=== PATIENT | male | born 1940 | race African-American/Black ===

== ENCOUNTER 2022-09-27 15:44 | Inpatient (IN) | payer MEDICARE, SELFPAY ==
[2022-09-27] VITALS (31 sets, daily range): BP systolic 99–122; BP diastolic 52–70; PULSE 86–129; RESP 14–28; TEMP 36.9–38.1; O2SAT 94–99; BMI 22.1
--- NOTE | ~2022-09-27 | XR_ITS ---
XR abdomen/kub 1V 09/30/2022 11:38 Indication: Pelvic pain. Possible stone. Procedure: KUB Comparison: No prior studies for comparison. Findings: Study limited due to overlying right lower extremity. Bowel gas pattern is nonobstructive. No definite renal stones are seen although the kidneys are obscured by bowel content.. Impression: 1: Unremarkable KUB. Reviewed, dictated and finalized at location A. [employer]ICAL MANAGER Impression: 1: Unremarkable KUB.
--- NOTE | ~2022-09-27 | XR_ITS ---
XR chest 1V portable 09/27/2022 17:17 Indication: Cough and shortness of breath Procedure: AP portable chest Comparison: No prior studies for comparison. Findings: Shallow inspiration. Heart size normal. There is atherosclerosis and ectasia of the aorta. No focal air space disease, pulmonary edema, pleural effusion or suspected pneumothorax. Impression: 1: No acute cardiopulmonary disease. Reviewed, dictated and finalized at location A. [employer] S[employer]TER Impression: 1: No acute cardiopulmonary disease.
[2022-09-27 16:10] LABS: Hematocrit 40.5 % (42.0-52.0); Hemoglobin 13.1 g/dL (14.0-18.0); Mean Corpuscular HGB Conc 32.3 g/dl (32-36); Mean Corpuscular Hemoglobin 27.2 pg (26-34); Mean Corpuscular Volume 84.2 fl (80-100); Mean Platelet Volume 10.9 fl (7.4-10.4); Platelet Count Result 165 k/mm3 (150-375); Red Blood Count 4.81 M/mm3 (4.6-6.20); Red Cell Distribution Width 16.7 % (11.5-14.5)
--- NOTE | 2022-09-27 16:20 | ED.FEVER ---
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 Patient is a resident at a nursing facility and was found to have a temperature of 103 Fahrenheit earlier today so EMS was called. For EMS, his temperature was 100.8F. Patient is normally A&O x1 and today was noted to be slightly more lethargic than normal. On my evaluation, the patient denies any pain. Related Data Home Medications Medication Instructions Recorded Confirmed ascorbic acid (vitamin C) 500 mg 500 mg PO BID 09/28/22 09/28/22 tablet baclofen 10 mg tablet 20 mg PO TID 09/28/22 09/28/22 bisacodyl 5 mg tablet,delayed 5 mg PO DAILY PRN Constipation 09/28/22 09/28/22 release cyanocobalamin (vitamin B-12) 1,000 mcg PO DAILY 09/28/22 09/28/22 1,000 mcg tablet docusate sodium 100 mg capsule 100 mg PO BID 09/28/22 09/28/22 (Colace) duloxetine 60 mg capsule,delayed 60 mg PO DAILY 09/28/22 09/28/22 release magnesium 250 mg tablet 250 mg PO DAILY 09/28/22 09/28/22 melatonin 3 mg tablet 3 mg PO HS PRN Insomnia 09/28/22 09/28/22 multivitamin with minerals-folic 1 tablet PO DAILY 09/28/22 09/28/22 acid 0.4 mg tablet oxycodone-acetaminophen 7.5 mg-325 1 tablet PO Q6H PRN Pain 09/28/22 09/28/22 mg tablet (Percocet) polyethylene glycol 3350 17 17 g PO DAILY 09/28/22 09/28/22 gram/dose oral powder (Miralax) potassium chloride 10 mEq 10 meq PO DAILY 09/28/22 09/28/22 capsule,extended release Allergies Allergy/AdvReac Type Severity Reaction Status Date / Time Penicillins Allergy Unknown Verified 09/27/22 16:39 Review of Systems Review of Systems: ROS unobtainable: Yes unobtainable due to mental status PMFSH Social History Social History Alcohol intake: unknown Substance use: unknown Spiritual care concerns: No Exam Narrative: GENERAL: Chronically ill-appearing gentleman lying in bed in no acute distress, appears to have chronic contractures of all 4 extremities HEAD: Normocephalic, atraumatic. EYES: PERRLA and EOMI. ENT: Nares clear, no rhinorrhea or epistaxis. Mucous membranes moist. NECK: Supple. CHEST: Clear to auscultation. No respiratory distress. HEART: Regular rate and rhythm. No murmur heard. Normal peripheral pulses. ABDOMEN: Soft, nontender, nondistended, normal active bowel sounds. EXTREMITIES: Normal range of motion. No edema. small pressure ulcer on sacrum, no drainage or surrounding redness SKIN: Warm, dry, no rash. NEURO: Chronic contractures in all extremities related to prior cervical spine injury, patient is responding intermittently appropriately, A&O x0 Course Vital Signs Vital signs: Vital Signs Temperature 100.5 F H 09/27/22 15:45 Pulse Rate 129 H 09/27/22 15:45 Respiratory Rate 28 H 09/27/22 15:45 Blood Pressure 100/52 L 09/27/22 15:45 Pulse Oximetry 95 09/27/22 15:45 Temperature 97.9 F 09/28/22 14:00 Pulse Rate 83 09/28/22 16:00 Respiratory Rate 16 09/28/22 14:00 Blood Pressure 112/73 09/28/22 14:00 Pulse Oximetry 99 09/28/22 14:00 Oxygen Delivery Room Air 09/28/22 08:00 MDM - Fever MDM Narrative Medical decision making narrative: Patient is an 82-year-old male presenting with fever. On arrival, patient is febrile and tachycardic in the 120s. Blood pressures are sitting 90-100 systolic. Fluid resuscitation is ongoing. Pt with significant leukocytosis and UTI. Electrolytes wnl. Lactic acid is normal. Pt covered with broad spectrum abx. Admitted to medicine for further management of sepsis. Lab Data 09/27/22 15:55 Labs: Lab Results 09/27/22 09/27/22 09/27/22 Range/Units 15:55 15:56 16:55 WBC 23.0 H (4.5-10.0) K/mm3 RBC 4.81 (4.6-6.
[2022-09-27] MEDS: KETOROLAC 15 MG/ML VIAL (*BKC) IV PUSH (16:39)
[2022-09-27] MEDS: SODIUM CHLORIDE 0.9% IV 1,000 ML 999 ML IV CONT (16:40)
[2022-09-27 16:50] LABS: Influenza A QL RT-PCR Negative (Negative); Influenza B QL RT-PCR Negative (Negative); SARS-CoV-2 RNA PCR Negative
[2022-09-27 17:05] LABS: Band Neutrophils Percent 7 % (0-6); Lymphocytes Absolute Manual 0.92 K/mm3 (1.1-4.5); Monocytes Absolute Manual 1.61 K/mm3 (0.1-0.90); Monocytes Percent Manual 7 % (3-9); Neutrophils Absolute Manual 20.47 K/mm3 (1.3-6.7); Neutrophils Percent Manual 82 % (46-73); Total Cells Counted 100
[2022-09-27 17:07] LABS: Platelet Estimate Adequate (Adequate); Schistocytes None Seen (NORMAL)
[2022-09-27 17:08] LABS: Anisocytosis 2+ (NORMAL)
[2022-09-27 17:17] LABS: Lactic Acid Reflex 1.4 mmol/L (0.7-2.0)
[2022-09-27 17:23] LABS: Alanine Aminotransferase 17 U/L (6-50); Alkaline Phosphatase 105 U/L (38-126); Anion Gap 8 mmol/L (8-16); Aspartate Amino Transferase 39 U/L (17-59); Bilirubin,Total 0.9 mg/dL (0.2-1.3); Blood Urea Nitrogen 26 mg/dL (9-20); Calcium 8.6 mg/dL (8.4-10.2); Carbon Dioxide 21 mmol/L (22-30); Chloride 107 mmol/L (98-107); Estimated CRCL calculation 43 ml/min; Estimated Glomerular Filt Rate > 60; Glucose 128 mg/dL (65-110); Potassium 4.4 mmol/L (3.4-5.0); Sodium 136 mmol/L (137-145)
[2022-09-27 20:15] LABS: Appearance Urine Turbid (Clear); Bilirubin Urine Negative (Negative); Blood Urine 2+ (Negative); Color Urine Yellow (Yellow); Glucose Urine UA Negative (Negative); Ketones Urine Negative (Negative); Leukocyte Esterase Ur 3+ LEU/UL (Negative); Nitrate Urine Negative (Negative); Protein Urine 3+ mg/dL (Negative); Specific Grav Ur 1.015 (1.001-1.035); Urobilinogen Urine 0.2 mg/dL (<2.0); pH Urine >=9.0 (5.0-9.0)
[2022-09-27 20:32] LABS: Bacteria Urine Trace /hpf; RBC Urine >75 /hpf (0-2); Squamous Epithelial Cell Urine Rare /hpf (Few); WBC Urine >75 /hpf
[2022-09-27 20:49] LABS: Add Urine Microscopic? YES
--- NOTE | 2022-09-27 21:27 | PM.IMHP ---
H&P: HPI History of Present Illness Date/Time: 09/27/22 21:27 Chief Complaint: altered mental status Narrative: This is an 82-year-old male with past medical history significant for quadriplegia, [facility]. Was brought to the emergency room for evaluation due to altered mental status patient also had spiked a fever EMS was called and patient was brought to the emergency room for further evaluation. In emergency room patient was found to have a urinary tract infection. Most of the history has been obtained upon reviewing medical records patient is unable to give any history his obtundent. A chest x-ray was clear. Patient is been admitted for further evaluation management and treatment. Review of Systems Review of Systems: ROS unobtainable: Yes unobtainable due to mental status ( Obtunded, lethargic) Meds Home Medications and Allergies Home Medications Medication Instructions Recorded Confirmed Type ascorbic acid (vitamin C) 500 mg 500 mg PO BID 09/28/22 09/28/22 History tablet baclofen 10 mg tablet 20 mg PO TID 09/28/22 09/28/22 History bisacodyl 5 mg tablet,delayed 5 mg PO DAILY PRN Constipation 09/28/22 09/28/22 History release cyanocobalamin (vitamin B-12) 1,000 mcg PO DAILY 09/28/22 09/28/22 History 1,000 mcg tablet docusate sodium 100 mg capsule 100 mg PO BID 09/28/22 09/28/22 History (Colace) duloxetine 60 mg capsule,delayed 60 mg PO DAILY 09/28/22 09/28/22 History release magnesium 250 mg tablet 250 mg PO DAILY 09/28/22 09/28/22 History melatonin 3 mg tablet 3 mg PO HS PRN Insomnia 09/28/22 09/28/22 History multivitamin with minerals-folic 1 tablet PO DAILY 09/28/22 09/28/22 History acid 0.4 mg tablet oxycodone-acetaminophen 7.5 mg-325 1 tablet PO Q6H PRN Pain 09/28/22 09/28/22 History mg tablet (Percocet) polyethylene glycol 3350 17 17 g PO DAILY 09/28/22 09/28/22 History gram/dose oral powder (Miralax) potassium chloride 10 mEq 10 meq PO DAILY 09/28/22 09/28/22 History capsule,extended release Allergies Allergy/AdvReac Type Severity Reaction Status Date / Time Penicillins Allergy Unknown Verified 09/27/22 16:39 Vital Signs Vital Signs - 24 hr 09/27/22 15:45 09/27/22 15:55 09/27/22 16:00 Temperature 100.5 F H Pulse Rate 129 H 116 H 111 H Respiratory Rate 28 H Blood Pressure 100/52 L Pulse Oximetry 95 96 94 09/27/22 16:01 09/27/22 16:19 09/27/22 16:50 Temperature Pulse Rate 101 H 101 H 104 H Respiratory Rate Blood Pressure 107/69 Pulse Oximetry 95 96 09/27/22 17:00 09/27/22 17:01 Temperature Pulse Rate 101 H 102 H Respiratory Rate Blood Pressure 101/55 L Pulse Oximetry Exam Const: General: comfortable, no acute distress, well developed, ill appearing, lethargic, patient obtunded and thin Nutritional Appearance: average body habitus Orientation/consciousness: oriented to person, patient obtunded and lethargic HENMT: Head: normal to inspection, normocephalic and atraumatic Ears: hearing grossly normal bilaterally Face/Nose/Sinus: normal facial exam Face and sinus: normal facial exam Eyes: General: appearance normal, both eyes and all related structures Pupils: Equal, round and reactive pupils present EOM: EOMs intact bilaterally Neck: Neck: full ROM, no lymphadenopathy and no JVD Thyroid: thyroid normal Lymphatic: no lymphadenopathy noted Resp: Effort & Inspection: normal respiratory effort and able to speak in complete sentences Auscultation: clear to auscultation bilaterally Cardio: Jugular venous distension: no JVD Rate: regular rate Rhythm: regular rhythm Heart sounds: S1 normal heart sound present and S2 normal heart sound present GI: Inspection: normal to inspection GI Palp: Yes Soft to palpation and Yes No hepatosplenomegaly present : General: Yes deferred Skin: Rashes: no rashes Wounds: no wounds Neuro: General: oriented to person and CN's II-XI intact bilateral
[2022-09-28] VITALS (11 sets, daily range): BP systolic 106–129; BP diastolic 62–73; PULSE 61–103; RESP 14–18; TEMP 36.6–38.1; O2SAT 94–99; BMI 22.1
[2022-09-28] MEDS: SODIUM CHLORIDE 0.9% IV 1,000 ML 125 ML IV CONT (00:14)
--- NOTE | 2022-09-28 01:01 | ADMGEN ---
This patient, Alyson Mares, was admitted to Medical Room 340-01. Patient/family oriented to hospital policies and general routines including ID bracelet, bed and alarms, visiting hours, pain management, procedures, bathroom and other care routines, personal items, smoking policy, room service/diet, and visiting hours. Information on how to activate the Rapid Response Team has been discussed. Patient/Family are encouraged to report perceived risks to care and to ask questions if they do not understand what they are told or what they should do.
[2022-09-28] MEDS: ACETAMINOPHEN 650 MG SUPPOSITORY RECTAL (01:12)
[2022-09-28] MEDS: AZTREONAM 1 GM in DEXTROSE 5% IN WATER 50 ML 100 ML IVPB ×3 (03:13→18:00)
[2022-09-28] MEDS: oxyCODONE HCL (*CRX) 2.5 MG TAB IR PO (03:46)
[2022-09-28] MEDS: oxyCODONE/ACETAMINOPHEN (*CRX) 5-325 MG TABLET 1 TABLET PO (03:46)
[2022-09-28] MEDS: ASCORBIC ACID 500 MG TABLET PO ×2 (08:14→16:52)
[2022-09-28] MEDS: MAGNESIUM OXIDE 200 MG TABLET PO (08:14)
[2022-09-28] MEDS: THERAPEUTIC MULTIVITAMINS/MINERALS TAB (*BKC) 1 TABLET PO (08:14)
[2022-09-28] MEDS: CYANOCOBALAMIN 1,000 MCG TABLET 1000 MCG PO (08:15)
[2022-09-28] MEDS: DULoxetine HCL 60 MG CAPSULE.DR PO (08:15)
[2022-09-28] MEDS: DOCUSATE SODIUM 100 MG CAPSULE PO ×2 (08:15→20:16)
[2022-09-28] MEDS: BACLOFEN 10 MG TABLET 20 MG PO ×3 (08:16→16:52)
[2022-09-28] MEDS: polyethylene glycoL 3350 17 GM POWD.PACK PO (08:17)
[2022-09-28 08:48] LABS: Estimated CRCL calculation 57 ml/min; Estimated Glomerular Filt Rate > 60
[2022-09-28] MEDS: SODIUM CHLORIDE 0.9% IV 1,000 ML 75 ML IV CONT (12:06)
--- NOTE | 2022-09-28 16:00 | PM.IMPN ---
Progress Note: A&P Assessment and Plan (1) Urinary tract infection: Code(s): N39.0 - Urinary tract infection, site not specified Status: Acute Assessment and Plan: Continue IV aztreonam and vancomycin Urine culture pending Blood culture preliminary report Gram-negative bacilli in anaerobic bottle deescalate antibiotics as needed (2) Quadriplegia: Code(s): G82.50 - Quadriplegia, unspecified Status: Acute Assessment and Plan: round the clock turning schedule fall precautions Plan Continue goals of care discussion Subjective Date/time seen: 09/28/22 16:00 Patient states he has doing okay. He also stated to me that he does not want to be full code in that he just wants to end the suffering by his wants him to live and so he will follow her wishes Review of Systems Review of Systems: All systems reviewed & are unremarkable except as noted in HPI and below Exam Const: General: ill appearing Nutritional Appearance: average body habitus Orientation/consciousness: oriented to person, patient obtunded and lethargic HENMT: Head: normal to inspection, normocephalic and atraumatic Ears: hearing grossly normal bilaterally Face/Nose/Sinus: normal facial exam Face and sinus: normal facial exam Eyes: General: appearance normal, both eyes and all related structures Pupils: Equal, round and reactive pupils present EOM: EOMs intact bilaterally Neck: Neck: no JVD Thyroid: thyroid normal Lymphatic: no lymphadenopathy noted Resp: Effort & Inspection: normal respiratory effort and able to speak in complete sentences Auscultation: clear to auscultation bilaterally Cardio: Jugular venous distension: no JVD Rate: regular rate Rhythm: regular rhythm Heart sounds: S1 normal heart sound present and S2 normal heart sound present GI: Inspection: normal to inspection GI Palp: Yes Soft to palpation and Yes No hepatosplenomegaly present : General: Yes deferred Skin: Rashes: no rashes Wounds: no wounds Neuro: General: oriented to person and CN's II-XI intact bilaterally Cranial nerves: Yes Equal, round and reactive pupils present and Yes Bilaterally intact EOM present Cognition (Neuro): normal cognition Speech: normal speech Gait exam (Neuro): Other gait observations present ( quadriplegic) Motor exam (neuro): Other motor observations present ( quadriplegic) Other: contracture spasticity of bilateral lower extremity Extrem: General: normal exam except as noted, no joint enlargement and no pedal edema Objective Data Vital Signs Vital Signs: Vital Signs - 24 hr 09/27/22 16:01 09/27/22 16:19 09/27/22 16:50 Temperature Pulse Rate 101 H 101 H 104 H Respiratory Rate Blood Pressure 107/69 Pulse Oximetry 95 96 Oxygen Delivery 09/27/22 17:00 09/27/22 17:01 09/27/22 17:02 Temperature Pulse Rate 101 H 102 H 106 H Respiratory Rate Blood Pressure 101/55 L Pulse Oximetry Oxygen Delivery 09/27/22 17:15 09/27/22 17:16 09/27/22 17:43 Temperature Pulse Rate 106 H 96 100 Respiratory Rate Blood Pressure 104/60 Pulse Oximetry 98 97 Oxygen Delivery 09/27/22 17:45 09/27/22 18:00 09/27/22 18:15 Temperature Pulse Rate 102 H 106 H 103 H Respiratory Rate Blood Pressure Pulse Oximetry 97 Oxygen Delivery 09/27/22 18:32 09/27/22 18:50 09/27/22 19:13 Temperature Pulse Rate 93 93 99 Respiratory Rate Blood Pressure Pulse Oximetry 96 95 98 Oxygen Delivery 09/27/22 19:15 09/27/22 19:32 09/27/22 19:34 Temperature Pulse Rate 95 86 89 Respiratory Rate Blood Pressure 102/59 L Pulse Oximetry 98 96 97 Oxygen Delivery 09/27/22 19:49 09/27/22 20:00 09/27/22 20:01 Temperature Pulse Rate 90 93 94 Respiratory Rate Blood Pressure 99/70 L Pulse Oximetry 97 94 95 Oxygen Delivery 09/27/22 20:20 09/27/22 20:30 09/27/22 20:31 Temperature Pulse Rate 92 88 93 Respiratory Ra
[2022-09-29] VITALS (9 sets, daily range): BP systolic 122–130; BP diastolic 65–79; PULSE 61–95; RESP 18–20; TEMP 36.7–36.8; O2SAT 97–100
[2022-09-29] MEDS: SODIUM CHLORIDE 0.9% IV 1,000 ML 75 ML IV CONT (02:30)
[2022-09-29] MEDS: AZTREONAM 1 GM in DEXTROSE 5% IN WATER 50 ML 100 ML IVPB ×3 (02:31→20:01)
[2022-09-29] MEDS: DOCUSATE SODIUM 100 MG CAPSULE PO ×2 (08:08→20:33)
[2022-09-29] MEDS: polyethylene glycoL 3350 17 GM POWD.PACK PO (08:08)
[2022-09-29] MEDS: ASCORBIC ACID 500 MG TABLET PO ×2 (08:08→17:31)
[2022-09-29] MEDS: THERAPEUTIC MULTIVITAMINS/MINERALS TAB (*BKC) 1 TABLET PO (08:08)
[2022-09-29] MEDS: CYANOCOBALAMIN 1,000 MCG TABLET 1000 MCG PO (08:08)
[2022-09-29] MEDS: DULoxetine HCL 60 MG CAPSULE.DR PO (08:08)
[2022-09-29] MEDS: BACLOFEN 10 MG TABLET 20 MG PO ×3 (08:08→17:31)
[2022-09-29] MEDS: MAGNESIUM OXIDE 200 MG TABLET PO (08:08)
--- NOTE | 2022-09-29 09:59 | PM.IMPN ---
Progress Note: A&P Assessment and Plan (1) Urinary tract infection: Code(s): N39.0 - Urinary tract infection, site not specified Status: Acute Assessment and Plan: Continue IV aztreonam and vancomycin Urine culture pending Blood culture preliminary report Gram-negative bacilli in anaerobic bottle deescalate antibiotics as needed (2) Quadriplegia: Code(s): G82.50 - Quadriplegia, unspecified Status: Acute Assessment and Plan: round the clock turning schedule fall precautions Plan Continue goals of care discussion Subjective Date/time seen: 09/29/22 09:59 Back to baseline mental status Review of Systems Review of Systems: All systems reviewed & are unremarkable except as noted in HPI and below Exam Const: General: ill appearing Nutritional Appearance: average body habitus Orientation/consciousness: oriented to person, patient obtunded and lethargic HENMT: Head: normal to inspection, normocephalic and atraumatic Ears: hearing grossly normal bilaterally Face/Nose/Sinus: normal facial exam Face and sinus: normal facial exam Eyes: General: appearance normal, both eyes and all related structures Pupils: Equal, round and reactive pupils present EOM: EOMs intact bilaterally Neck: Neck: no JVD Thyroid: thyroid normal Lymphatic: no lymphadenopathy noted Resp: Effort & Inspection: normal respiratory effort and able to speak in complete sentences Auscultation: clear to auscultation bilaterally Cardio: Jugular venous distension: no JVD Rate: regular rate Rhythm: regular rhythm Heart sounds: S1 normal heart sound present and S2 normal heart sound present GI: Inspection: normal to inspection GI Palp: Yes Soft to palpation and Yes No hepatosplenomegaly present : General: Yes deferred Skin: Rashes: no rashes Wounds: no wounds Neuro: General: oriented to person and CN's II-XI intact bilaterally Cranial nerves: Yes Equal, round and reactive pupils present and Yes Bilaterally intact EOM present Cognition (Neuro): normal cognition Speech: normal speech Gait exam (Neuro): Other gait observations present ( quadriplegic) Motor exam (neuro): Other motor observations present ( quadriplegic) Other: contracture spasticity of bilateral lower extremity Extrem: General: normal exam except as noted, no joint enlargement and no pedal edema Objective Data Vital Signs Vital Signs: Vital Signs - 24 hr 09/28/22 12:00 09/28/22 14:00 09/28/22 16:00 Temperature 97.9 F Pulse Rate 94 80 83 Respiratory Rate 16 Blood Pressure 112/73 Pulse Oximetry 99 Oxygen Delivery 09/28/22 20:00 09/28/22 20:00 09/28/22 22:00 Temperature 98.9 F Pulse Rate 92 61 Respiratory Rate 18 Blood Pressure 129/67 Pulse Oximetry 94 Oxygen Delivery Room Air 09/29/22 00:00 09/29/22 04:00 09/29/22 05:18 Temperature 98.1 F Pulse Rate 93 87 61 Respiratory Rate 18 Blood Pressure 130/65 Pulse Oximetry 99 Oxygen Delivery Intake/Output Intake/Output: Intake & Output 09/26/22 09/27/22 09/28/22 09/29/22 23:59 23:59 23:59 23:59 Intake Total 1300 / 1300 3780 / 3780 1200 / 1200 Balance 1300 / 1300 3780 / 3780 1200 / 1200 Meds/Results Medications: Active Medications Generic Name Dose Route Start Last Admin Trade Name Freq PRN Reason Stop Dose Admin Ascorbic Acid 500 mg 09/28/22 09:00 09/29/22 08:08 Ascorbic Acid 500 Mg Tablet PO 500 mg BID MOON Administration Baclofen 20 mg 09/28/22 09:00 09/29/22 08:08 Baclofen 10 Mg Tablet PO 20 mg TID MOON Administration Bisacodyl 5 mg 09/28/22 01:56 Bisacodyl 5 Mg Tablet Ec PO DAILY PRN Constipation Cyanocobalamin 1,000 mcg 09/28/22 09:00 09/29/22 08:08 Cyanocobalamin 1,000 Mcg Tablet PO 1,000 mcg DAILY MOON Administration Docusate Sodium 100 mg 09/28/22 09:00 09/29/22 08:08 Docusate Sodium 100 Mg Capsule PO 100 mg Q12HR MOON Administration Duloxeti
[2022-09-29] MEDS: MELATONIN 3 MG TABLET PO (20:33)
[2022-09-29] MEDS: oxyCODONE/ACETAMINOPHEN (*CRX) 5-325 MG TABLET 1 TABLET PO (21:12)
[2022-09-29] MEDS: oxyCODONE HCL (*CRX) 2.5 MG TAB IR PO (21:12)
[2022-09-30] VITALS (10 sets, daily range): BP systolic 96–126; BP diastolic 46–71; PULSE 72–100; RESP 16–20; TEMP 36.6; O2SAT 98–99
[2022-09-30] MEDS: AZTREONAM 1 GM in DEXTROSE 5% IN WATER 50 ML 100 ML IVPB ×3 (02:39→20:51)
[2022-09-30] MEDS: ASCORBIC ACID 500 MG TABLET PO ×2 (08:16→17:55)
[2022-09-30] MEDS: DULoxetine HCL 60 MG CAPSULE.DR PO (08:16)
[2022-09-30] MEDS: MAGNESIUM OXIDE 200 MG TABLET PO (08:16)
[2022-09-30] MEDS: THERAPEUTIC MULTIVITAMINS/MINERALS TAB (*BKC) 1 TABLET PO (08:17)
[2022-09-30] MEDS: CYANOCOBALAMIN 1,000 MCG TABLET 1000 MCG PO (08:17)
[2022-09-30] MEDS: BACLOFEN 10 MG TABLET 20 MG PO ×3 (08:17→17:58)
[2022-09-30] MEDS: DOCUSATE SODIUM 100 MG CAPSULE PO ×2 (08:17→20:51)
[2022-09-30 14:53] LABS: Hematocrit 40.4 % (42.0-52.0); Hemoglobin 13.4 g/dL (14.0-18.0); Mean Corpuscular HGB Conc 33.2 g/dl (32-36); Mean Corpuscular Hemoglobin 27.3 pg (26-34); Mean Corpuscular Volume 82.3 fl (80-100); Mean Platelet Volume 11.4 fl (7.4-10.4); Platelet Count Result 185 k/mm3 (150-375); Red Blood Count 4.91 M/mm3 (4.6-6.20); Red Cell Distribution Width 16.3 % (11.5-14.5); White Blood Count 9.6 K/mm3 (4.5-10.0)
[2022-09-30] MEDS: oxyCODONE HCL (*CRX) 2.5 MG TAB IR PO (16:02)
[2022-09-30] MEDS: oxyCODONE/ACETAMINOPHEN (*CRX) 5-325 MG TABLET 1 TABLET PO (16:03)
--- NOTE | 2022-09-30 16:31 | PM.IMPN ---
Progress Note: A&P Assessment and Plan (1) Urinary tract infection: Code(s): N39.0 - Urinary tract infection, site not specified Status: Acute Assessment and Plan: Continue IV aztreonam and vancomycin Urine culture pending Blood culture preliminary report Gram-negative bacilli in anaerobic bottle deescalate antibiotics as needed 09/30/2022 interval history: patient has a quadriplegia patient is incontinent of urine and stool and has diapers presented with a acute mental status change, fever and is found to have Blood culture positive with Proteus mirabilis and being treated with Aztreonam, patient's white counts are trending down to 9.6 upon arrival was 23.0, urine culture is negative for any bacterial growth. however patient continued to complain of dysuria and pelvic pain to further evaluate patient had a KUB, showed stool but no kidney stone, will continue present management and monitor (2) Quadriplegia: Code(s): G82.50 - Quadriplegia, unspecified Status: Acute Assessment and Plan: round the clock turning schedule fall precautions Plan Continue goals of care discussion Subjective Date/time seen: 09/30/22 16:31 Narrative: ?This is an 82-year-old male with past medical history significant for quadriplegia, [facility] Was brought to the emergency room for evaluation due to altered mental status patient also had spiked a fever EMS was called and patient was brought to the emergency room for further evaluation.? In emergency room patient was found to have a urinary tract infection.? Most of the history has been obtained upon reviewing medical records patient is unable to give any history his obtundent.? A chest x-ray was clear.? Patient is been admitted for further evaluation management and treatment. 09/30/2022 interval history: patient has a quadriplegia patient is incontinent of urine and stool and has diapers presented with a acute mental status change, fever and is found to have Blood culture positive with Proteus mirabilis and being treated with Aztreonam, patient's white counts are trending down to 9.6 upon arrival was 23.0, urine culture is negative for any bacterial growth. however patient continued to complain of dysuria and pelvic pain to further evaluate patient had a KUB, showed stool but no kidney stone, will continue present management and monitor Review of Systems Review of Systems: All systems reviewed & are unremarkable except as noted in HPI and below Exam Narrative: Patient is comfortable, NAD HEENT: eyes are clear and none icteric LUNGS:CTA HEART: RR S1S2 ABD: BS+, Soft and nontender Lower extremities: no edema SKIN: nonjaundiced Neuro: grossly intact. Objective Data Vital Signs Vital Signs: Vital Signs - 24 hr 09/29/22 19:18 09/29/22 20:00 09/30/22 00:00 Temperature 98.1 F Pulse Rate 83 89 75 Respiratory Rate 20 Blood Pressure 122/75 Pulse Oximetry 97 Oxygen Delivery 09/30/22 04:37 09/30/22 04:00 09/30/22 08:30 Temperature 97.8 F Pulse Rate 77 100 Respiratory Rate 20 Blood Pressure 126/71 Pulse Oximetry 98 98 Oxygen Delivery Room Air 09/30/22 08:00 09/30/22 12:00 09/30/22 14:00 Temperature 97.9 F Pulse Rate 72 77 100 Respiratory Rate 16 Blood Pressure 96/46 L Pulse Oximetry 98 Oxygen Delivery Intake/Output Intake/Output: Intake & Output 09/27/22 09/28/22 09/29/22 09/30/22 23:59 23:59 23:59 23:59 Intake Total 1300 3780 2260 530 Balance 1300 3780 2260 530 Meds/Results Medications: Active Medications Generic Name Dose Route Start Last Admin Trade Name Freq PRN Reason Stop Dose Admin Ascorbic Acid 500 mg 09/28/22 09:00 09/30/22 08:16 Ascorbic Acid 500 Mg Tablet PO 500 mg BID MOON Administration Baclofen 20 mg 09/28/22 09:00 09/30/22 13:44 Baclofen 10 Mg Tablet PO 20 mg TID MOON Administration Bisacodyl 5 mg 09/28/22
[2022-10-01] VITALS (9 sets, daily range): BP systolic 90–124; BP diastolic 55–63; PULSE 57–92; RESP 16–20; TEMP 36.8–37.1; O2SAT 100
[2022-10-01] MEDS: AZTREONAM 1 GM in DEXTROSE 5% IN WATER 50 ML 100 ML IVPB ×3 (03:30→19:54)
[2022-10-01] MEDS: oxyCODONE HCL (*CRX) 2.5 MG TAB IR PO (04:40)
[2022-10-01] MEDS: oxyCODONE/ACETAMINOPHEN (*CRX) 5-325 MG TABLET 1 TABLET PO (04:41)
[2022-10-01] MEDS: BISACODYL 5 MG TABLET EC PO (04:42)
[2022-10-01 06:39] LABS: Hematocrit 36.5 % (42.0-52.0); Hemoglobin 11.8 g/dL (14.0-18.0); Mean Corpuscular HGB Conc 32.3 g/dl (32-36); Mean Corpuscular Hemoglobin 26.6 pg (26-34); Mean Corpuscular Volume 82.4 fl (80-100); Mean Platelet Volume 11.5 fl (7.4-10.4); Platelet Count Result 177 k/mm3 (150-375); Red Blood Count 4.43 M/mm3 (4.6-6.20); Red Cell Distribution Width 16.1 % (11.5-14.5); White Blood Count 9.9 K/mm3 (4.5-10.0)
[2022-10-01 06:49] LABS: Anion Gap 7 mmol/L (8-16); Blood Urea Nitrogen 24 mg/dL (9-20); Calcium 8.4 mg/dL (8.4-10.2); Carbon Dioxide 23 mmol/L (22-30); Chloride 103 mmol/L (98-107); Estimated CRCL calculation 87 ml/min; Estimated Glomerular Filt Rate > 60; Glucose 104 mg/dL (65-110); Potassium 3.6 mmol/L (3.4-5.0); Sodium 133 mmol/L (137-145)
[2022-10-01] MEDS: ASCORBIC ACID 500 MG TABLET PO ×2 (09:03→17:23)
[2022-10-01] MEDS: MAGNESIUM OXIDE 200 MG TABLET PO (09:03)
[2022-10-01] MEDS: CYANOCOBALAMIN 1,000 MCG TABLET 1000 MCG PO (09:03)
[2022-10-01] MEDS: DULoxetine HCL 60 MG CAPSULE.DR PO (09:03)
[2022-10-01] MEDS: DOCUSATE SODIUM 100 MG CAPSULE PO (09:07)
[2022-10-01] MEDS: BACLOFEN 10 MG TABLET 20 MG PO ×3 (09:08→17:23)
[2022-10-01] MEDS: THERAPEUTIC MULTIVITAMINS/MINERALS TAB (*BKC) 1 TABLET PO (09:08)
--- NOTE | 2022-10-01 14:42 | PM.IMPN ---
Progress Note: A&P Assessment and Plan (1) Urinary tract infection: Code(s): N39.0 - Urinary tract infection, site not specified Status: Acute Assessment and Plan: Continue IV aztreonam and vancomycin Urine culture pending Blood culture preliminary report Gram-negative bacilli in anaerobic bottle deescalate antibiotics as needed 10/01/2022 interval history: patient has a quadriplegia patient is incontinent of urine and stool and has diapers presented with a acute mental status change, fever and is found to have Blood culture positive with Proteus mirabilis and being treated with Aztreonam, patient's white counts are trending down to 9.9 upon arrival was 23.0, urine culture is negative for any bacterial growth. however patient continued to complain of dysuria and pelvic pain to further evaluate patient had a KUB, showed stool but no kidney stone, will continue present management and monitor, will discuss with ID pharmacy to and further recommendation to follow. (2) Quadriplegia: Code(s): G82.50 - Quadriplegia, unspecified Status: Acute Assessment and Plan: round the clock turning schedule fall precautions Plan Continue goals of care discussion Subjective Date/time seen: 10/01/22 14:42 10/01/2022 interval history: patient has a quadriplegia patient is incontinent of urine and stool and has diapers presented with a acute mental status change, fever and is found to have Blood culture positive with Proteus mirabilis and being treated with Aztreonam, patient's white counts are trending down to 9.9 upon arrival was 23.0, urine culture is negative for any bacterial growth. however patient continued to complain of dysuria and pelvic pain to further evaluate patient had a KUB, showed stool but no kidney stone, will continue present management and monitor, will discuss with ID pharmacy to and further recommendation to follow. Review of Systems Review of Systems: All systems reviewed & are unremarkable except as noted in HPI and below Exam Narrative: Patient is comfortable, NAD HEENT: eyes are clear and none icteric LUNGS:CTA HEART: RR S1S2 ABD: BS+, Soft and nontender Lower extremities: no edema SKIN: nonjaundiced Neuro: grossly intact. Objective Data Vital Signs Vital Signs: Vital Signs - 24 hr 09/30/22 16:00 09/30/22 19:27 09/30/22 20:00 Temperature 97.8 F Pulse Rate 96 95 98 Respiratory Rate 20 Blood Pressure 111/62 Pulse Oximetry 99 10/01/22 00:00 10/01/22 04:00 10/01/22 06:00 Temperature 98.8 F Pulse Rate 82 79 57 L Respiratory Rate 20 Blood Pressure 124/63 Pulse Oximetry 100 Intake/Output Intake/Output: Intake & Output 09/28/22 09/29/22 09/30/22 10/01/22 23:59 23:59 23:59 23:59 Intake Total 3780 2260 870 410 Balance 3780 2260 870 410 Meds/Results Medications: Active Medications Generic Name Dose Route Start Last Admin Trade Name Freq PRN Reason Stop Dose Admin Ascorbic Acid 500 mg 09/28/22 09:00 10/01/22 09:03 Ascorbic Acid 500 Mg Tablet PO 500 mg BID MOON Administration Baclofen 20 mg 09/28/22 09:00 10/01/22 12:50 Baclofen 10 Mg Tablet PO 20 mg TID MOON Administration Bisacodyl 5 mg 09/28/22 01:56 10/01/22 04:42 Bisacodyl 5 Mg Tablet Ec PO 5 mg DAILY PRN Administration Constipation Cyanocobalamin 1,000 mcg 09/28/22 09:00 10/01/22 09:03 Cyanocobalamin 1,000 Mcg Tablet PO 1,000 mcg DAILY MOON Administration Docusate Sodium 100 mg 09/28/22 09:00 10/01/22 09:07 Docusate Sodium 100 Mg Capsule PO 100 mg Q12HR MOON Administration Duloxetine HCl 60 mg 09/28/22 09:00 10/01/22 09:03 Duloxetine Hcl 60 Mg Capsule.Dr PO 60 mg DAILY MOON Administration Aztreonam 1 gm/ Dextrose 50 mls @ 100 mls/hr 09/28/22 03:00 10/01/22 11:30 IVPB 100 mls/hr Q8H MOON Administration Magnesium Oxide 200 mg 09/28/22 09:00 10/01/22 09:03 Magnesium Oxide 200 Mg Tab
[2022-10-02] VITALS (10 sets, daily range): BP systolic 90–110; BP diastolic 56–71; PULSE 64–86; RESP 16–18; TEMP 36.2–36.7; O2SAT 98–100
[2022-10-02] MEDS: AZTREONAM 1 GM in DEXTROSE 5% IN WATER 50 ML 100 ML IVPB ×3 (02:38→19:27)
[2022-10-02 05:42] LABS: Hemoglobin 12.2 g/dL (14.0-18.0); Mean Corpuscular HGB Conc 32.1 g/dl (32-36); Mean Corpuscular Hemoglobin 27.1 pg (26-34); Mean Corpuscular Volume 84.4 fl (80-100); Mean Platelet Volume 11.3 fl (7.4-10.4); Platelet Count Result 218 k/mm3 (150-375); Red Cell Distribution Width 16.3 % (11.5-14.5); White Blood Count 11.4 K/mm3 (4.5-10.0)
[2022-10-02 05:54] LABS: Anion Gap 6 mmol/L (8-16); Blood Urea Nitrogen 28 mg/dL (9-20); Calcium 8.6 mg/dL (8.4-10.2); Carbon Dioxide 27 mmol/L (22-30); Chloride 102 mmol/L (98-107); Estimated CRCL calculation 74 ml/min; Estimated Glomerular Filt Rate > 60; Glucose 100 mg/dL (65-110); Potassium 3.5 mmol/L (3.4-5.0); Sodium 135 mmol/L (137-145)
[2022-10-02] MEDS: CYANOCOBALAMIN 1,000 MCG TABLET 1000 MCG PO (09:44)
[2022-10-02] MEDS: THERAPEUTIC MULTIVITAMINS/MINERALS TAB (*BKC) 1 TABLET PO (09:44)
[2022-10-02] MEDS: ASCORBIC ACID 500 MG TABLET PO ×2 (09:44→17:01)
[2022-10-02] MEDS: DULoxetine HCL 60 MG CAPSULE.DR PO (09:44)
[2022-10-02] MEDS: MAGNESIUM OXIDE 200 MG TABLET PO (09:45)
[2022-10-02] MEDS: DOCUSATE SODIUM 100 MG CAPSULE PO (09:45)
[2022-10-02] MEDS: BACLOFEN 10 MG TABLET 20 MG PO ×3 (09:45→17:01)
[2022-10-02] MEDS: oxyCODONE HCL (*CRX) 2.5 MG TAB IR PO (12:35)
[2022-10-02] MEDS: oxyCODONE/ACETAMINOPHEN (*CRX) 5-325 MG TABLET 1 TABLET PO (12:37)
--- NOTE | 2022-10-02 14:55 | PM.IMPN ---
Progress Note: A&P Assessment and Plan (1) Urinary tract infection: Code(s): N39.0 - Urinary tract infection, site not specified Status: Acute Assessment and Plan: Continue IV aztreonam and vancomycin Urine culture pending Blood culture preliminary report Gram-negative bacilli in anaerobic bottle deescalate antibiotics as needed 10/02/2022 interval history: patient has a quadriplegia patient is incontinent of urine and stool and has diapers presented with a acute mental status change, fever and is found to have Blood culture positive with Proteus mirabilis and being treated with Aztreonam, patient's white counts are trending down to 11.4 upon arrival was 23.0, urine culture is negative for any bacterial growth. however patient continued to complain of dysuria and pelvic pain to further evaluate patient had a KUB, showed stool but no kidney stone, will continue present management and monitor, will discuss with ID pharmacy to and further recommendation to follow. (2) Quadriplegia: Code(s): G82.50 - Quadriplegia, unspecified Status: Acute Assessment and Plan: round the clock turning schedule fall precautions Plan Continue goals of care discussion Subjective Date/time seen: 10/02/22 14:55 10/02/2022 interval history: patient has a quadriplegia patient is incontinent of urine and stool and has diapers presented with a acute mental status change, fever and is found to have Blood culture positive with Proteus mirabilis and being treated with Aztreonam, patient's white counts are trending down to 11.4 upon arrival was 23.0, urine culture is negative for any bacterial growth. however patient continued to complain of dysuria and pelvic pain to further evaluate patient had a KUB, showed stool but no kidney stone, will continue present management and monitor, will discuss with ID pharmacy to and further recommendation to follow. Review of Systems Review of Systems: All systems reviewed & are unremarkable except as noted in HPI and below Exam Narrative: Patient is comfortable, NAD HEENT: eyes are clear and none icteric LUNGS:CTA HEART: RR S1S2 ABD: BS+, Soft and nontender Lower extremities: no edema SKIN: nonjaundiced Neuro: grossly intact. Objective Data Vital Signs Vital Signs: Vital Signs - 24 hr 10/01/22 16:42 10/01/22 16:00 10/01/22 20:00 Temperature 98.2 F Pulse Rate 88 92 85 Respiratory Rate 16 Blood Pressure 93/55 L Pulse Oximetry 100 Oxygen Delivery 10/01/22 20:00 10/01/22 21:50 10/02/22 00:00 Temperature 98.2 F Pulse Rate 86 82 Respiratory Rate 18 Blood Pressure 90/56 L Pulse Oximetry 100 Oxygen Delivery Room Air 10/02/22 04:00 10/02/22 06:00 10/02/22 09:45 Temperature 97.9 F Pulse Rate 82 86 86 Respiratory Rate 18 18 Blood Pressure 90/56 L Pulse Oximetry 100 100 Oxygen Delivery Room Air 10/02/22 14:00 Temperature 97.1 F L Pulse Rate 76 Respiratory Rate 18 Blood Pressure 110/71 Pulse Oximetry 98 Oxygen Delivery Intake/Output Intake/Output: Intake & Output 09/29/22 09/30/22 10/01/22 10/02/22 23:59 23:59 23:59 23:59 Intake Total 2260 870 1230 820 Output Total 4 Balance 2260 870 1230 816 Meds/Results Medications: Active Medications Generic Name Dose Route Start Last Admin Trade Name Freq PRN Reason Stop Dose Admin Ascorbic Acid 500 mg 09/28/22 09:00 10/02/22 09:44 Ascorbic Acid 500 Mg Tablet PO 500 mg BID MOON Administration Baclofen 20 mg 09/28/22 09:00 10/02/22 12:26 Baclofen 10 Mg Tablet PO 20 mg TID MOON Administration Bisacodyl 5 mg 09/28/22 01:56 10/01/22 04:42 Bisacodyl 5 Mg Tablet Ec PO 5 mg DAILY PRN Administration Constipation Cyanocobalamin 1,000 mcg 09/28/22 09:00 10/02/22 09:44 Cyanocobalamin 1,000 Mcg Tablet PO 1,000 mcg DAILY MOON Administration Docusate Sodium 100 mg 09/28/22 09:00 10/02/22 09:45 Docusate Sodium
--- NOTE | 2022-10-02 15:31 | P.PNIM_ITS ---
Progress Note: A&P Assessment and Plan (1) Urinary tract infection: Code(s): N39.0 - Urinary tract infection, site not specified Status: Acute Assessment and Plan: Continue IV aztreonam and vancomycin Urine culture pending Blood culture preliminary report Gram-negative bacilli in anaerobic bottle deescalate antibiotics as needed 10/02/2022 interval history: patient has a quadriplegia patient is incontinent of urine and stool and has diapers presented with a acute mental status change, fever and is found to have Blood culture positive with Proteus mirabilis and being treated with Aztreonam, patient's white counts are trending down to 11.4 upon arrival was 23.0, urine culture is negative for any bacterial growth. however patient continued to complain of dysuria and pelvic pain to further evaluate patient had a KUB, showed stool but no kidney stone, will continue present management and monitor, will discuss with ID pharmacy to and further recommendation to follow. (2) Quadriplegia: Code(s): G82.50 - Quadriplegia, unspecified Status: Acute Assessment and Plan: round the clock turning schedule fall precautions Plan Continue goals of care discussion Subjective Date/time seen: 10/02/22 15:31 10/02/2022 interval history: patient has a quadriplegia patient is incontinent of urine and stool and has diapers presented with a acute mental status change, fever and is found to have Blood culture positive with Proteus mirabilis and being treated with Aztreonam, patient's white counts are trending down to 11.4 upon arrival was 23.0, urine culture is negative for any bacterial growth. however patient continued to complain of dysuria and pelvic pain to further ev aluate patient had a KUB, showed stool but no kidney stone, will continue present management and monitor, will discuss with ID pharmacy to and further recommendation to follow. Review of Systems Review of Systems: All systems reviewed & are unremarkable except as noted in HPI and below Exam Narrative: Patient is comfortable, NAD HEENT: eyes are clear and none icteric LUNGS:CTA HEART: RR S1S2 ABD: BS+, Soft and nontender Lower extremities: no edema SKIN: nonjaundiced Neuro: grossly intact. Objective Data Vital Signs Vital Signs: Vital Signs - 24 hr 10/01/22 16:42 10/01/22 16:00 10/01/22 20:00 Temperature 98.2 F Pulse Rate 88 92 85 Respiratory Rate 16 Blood Pressure 93/55 L Pulse Oximetry 100 Oxygen Delivery 10/01/22 20:00 10/01/22 21:50 10/02/22 00:00 Temperature 98.2 F Pulse Rate 86 82 Respiratory Rate 18 Blood Pressure 90/56 L Pulse Oximetry 100 Oxygen Delivery Room Air 10/02/22 04:00 10/02/22 06:00 10/02/22 09:45 Temperature 97.9 F Pulse Rate 82 86 86 Respiratory Rate 18 18 Blood Pressure 90/56 L Pulse Oximetry 100 100 Oxygen Delivery Room Air 10/02/22 14:00 Temperature 97.1 F L Pulse Rate 76 Respiratory Rate 18 Blood Pressure 110/71 Pulse Oximetry 98 Oxygen Delivery Intake/Output Intake/Output: Intake & Output 09/29/22 09/30/22 10/01/22 10/02/22 23:59 23:59 23:59 23:59
[2022-10-03] VITALS: PULSE 80
[2022-10-03] MEDS: AZTREONAM 1 GM in DEXTROSE 5% IN WATER 50 ML 100 ML IVPB ×3 (02:19→14:47)
[2022-10-03 04:00] VITALS: PULSE 76
[2022-10-03 05:37] LABS: Hemoglobin 11.8 g/dL (14.0-18.0); Mean Corpuscular HGB Conc 32.8 g/dl (32-36); Mean Corpuscular Hemoglobin 27.1 pg (26-34); Mean Corpuscular Volume 82.6 fl (80-100); Mean Platelet Volume 10.8 fl (7.4-10.4); Platelet Count Result 245 k/mm3 (150-375); Red Blood Count 4.36 M/mm3 (4.6-6.20); Red Cell Distribution Width 16.1 % (11.5-14.5); White Blood Count 9.9 K/mm3 (4.5-10.0)
[2022-10-03 05:48] LABS: Anion Gap 4 mmol/L (8-16); Blood Urea Nitrogen 27 mg/dL (9-20); Calcium 8.8 mg/dL (8.4-10.2); Carbon Dioxide 28 mmol/L (22-30); Chloride 100 mmol/L (98-107); Estimated CRCL calculation 74 ml/min; Estimated Glomerular Filt Rate > 60; Glucose 102 mg/dL (65-110); Potassium 3.7 mmol/L (3.4-5.0); Sodium 132 mmol/L (137-145)
[2022-10-03 06:00] VITALS: BP 96/57; PULSE 81; RESP 16; TEMP 36.7; O2SAT 100
[2022-10-03 08:00] VITALS: PULSE 77
[2022-10-03] MEDS: MAGNESIUM OXIDE 200 MG TABLET PO (08:15)
[2022-10-03] MEDS: DULoxetine HCL 60 MG CAPSULE.DR PO (08:15)
[2022-10-03] MEDS: THERAPEUTIC MULTIVITAMINS/MINERALS TAB (*BKC) 1 TABLET PO (08:15)
[2022-10-03] MEDS: CYANOCOBALAMIN 1,000 MCG TABLET 1000 MCG PO (08:15)
[2022-10-03] MEDS: BACLOFEN 10 MG TABLET 20 MG PO ×2 (08:15→13:23)
[2022-10-03] MEDS: ASCORBIC ACID 500 MG TABLET PO (08:15)
--- NOTE | 2022-10-03 10:47 | PM.DS ---
DS: Admitting Diagnosis Discharge Date 10/03/2022 Admitting Diagnosis altered mental status DS: Discharge Diagnosis Discharge Diagnosis (1) Urinary tract infection: Code(s): N39.0 - Urinary tract infection, site not specified Status: Acute Assessment and Plan: Continue IV aztreonam and vancomycin Urine culture pending Blood culture preliminary report Gram-negative bacilli in anaerobic bottle deescalate antibiotics as needed 10/02/2022 interval history: patient has a quadriplegia patient is incontinent of urine and stool and has diapers presented with a acute mental status change, fever and is found to have Blood culture positive with Proteus mirabilis and being treated with Aztreonam, patient's white counts are trending down to 11.4 upon arrival was 23.0, urine culture is negative for any bacterial growth. however patient continued to complain of dysuria and pelvic pain to further evaluate patient had a KUB, showed stool but no kidney stone, will continue present management and monitor, will discuss with ID pharmacy to and further recommendation to follow. (2) Quadriplegia: Code(s): G82.50 - Quadriplegia, unspecified Status: Acute Assessment and Plan: round the clock turning schedule fall precautions Plan Continue goals of care discussion DS: Summary Hospital Course Reason for hospitalization: altered mental status Narrative: ?This is an 82-year-old male with past medical history significant for quadriplegia, patient lives at [facility].? Was brought to the emergency room for evaluation due to altered mental status patient also had spiked a fever EMS was called and patient was brought to the emergency room for further evaluation.? In emergency room patient was found to have a urinary tract infection.? Most of the history has been obtained upon reviewing medical records patient is unable to give any history his obtundent.? A chest x-ray was clear.? Patient is been admitted for further evaluation management and treatment. Hospital Course: ?patient has a quadriplegia patient is incontinent of urine and stool and has diapers presented with a acute mental status change, fever and is found to have Blood culture positive with Proteus mirabilis and being treated with Aztreonam, patient's white counts are trending down to 11.4 upon arrival was 23.0, urine culture is negative for any bacterial growth. however patient continued to complain of dysuria and pelvic pain to further evaluate patient had a KUB,? showed stool but no kidney stone,? will continue present management and monitor,? will discuss with ID pharmacy to and further recommendation to follow. patient remains clinically stable today he has completed his course of antibiotic will discharge the patient back to [facility]. Time Spent with Patient Time attestation: Total time spent providing and/or coordinating discharge services: Exam Narrative: Patient is comfortable, NAD HEENT: eyes are clear and none icteric LUNGS:CTA HEART: RR S1S2 ABD: BS+, Soft and nontender Lower extremities: no edema SKIN: nonjaundiced Neuro: grossly intact. DS: Data Data Completed and Pending Labs on day of discharge: Labs from last 24 hours 10/03/22 10/03/22 05:32 05:32 WBC 9.9 RBC 4.36 L Hgb 11.8 L Hct 36.0 L MCV 82.6 MCH 27.1 MCHC 32.8 RDW 16.1 H Plt Count 245 MPV 10.8 H Sodium 132 L Potassium 3.7 Chloride 100 Carbon Dioxide 28 Anion Gap 4 L BUN 27 H Creatinine 0.60 L Estim Creat Clear Calc 74 Estimated GFR > 60 Glucose 102 Calcium 8.8 Preliminary micro results at discharge 09/27/22 16:55 Blood Culture - Preliminary Blood Proteus Mirabilis Discharge Plan Discharge Attending physician on discharge: Mally Bustillos Consulting providers: Alex Chavez ; Amrit Larios Discharging Clinician: Amrit Larios Anticipated Discharge Date/Time
--- NOTE | 2022-10-03 10:58 | PCNFU ---
Nutrition Follow-Up Complete: Increased nutrient needs related to altered skin integrity as evidenced by stage III to sacrum Goal: PO intake 75% of meals and supplements. Pt is meeting goal, continue with same goal. Pt current nutrition is heart healthy, SHAHEEN BID for wound healing. Nutrition recommendation: Continue with current plan of care. 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 Continue with current plan of care. Monitor intake, wt, labs, skin. Follow up in 5 days.
[2022-10-03 11:28] LABS: EDCOVIDSCREEN Negative (Negative)
--- NOTE | 2022-10-03 12:47 | PC.NURSE ---
Per Dr Bustillos, spoke with Alannah in pharmacy to verify what time 0 does of Aztreonam can be given. She verified it could be given 5-6 hrs after last dose.
[2022-10-03 14:00] VITALS: BP 141/67; PULSE 54; RESP 18; TEMP 36.8; O2SAT 99
== END 2022-10-03 15:45 | DRG 689 ==
LOC: ANHED 16:31 → ANH3MED 22:49
PROVIDERS: Emergency Medicine; Admitting Provider Internal Medicine; Emergency Provider Emergency Medicine; PCP Internal Medicine; Visit Provider Family Medicine
DX: N39.0 Urinary tract infection, site not specified (principal); G82.50 Quadriplegia, unspecified; B96.4 Proteus (mirabilis) (morganii) as the cause of diseases classified elsewhere; Z20.822 Contact with and (suspected) exposure to COVID-19; F20.9 Schizophrenia, unspecified; R32 Unspecified urinary incontinence
CPT/HCPCS: 36415; 71045; 74018; 80048; 80053; 81001; 82565; 83605; 85025; 85027; 87040; 87077; 87086; 87088; 87186; 87426; 87636; 96361; 96365; 96366; 96367; 96375; 99285; A9270; C9803; G0378; J0692; J1885; J3370; J7030

== ENCOUNTER 2022-10-17 10:13 | Inpatient (IN) | payer MEDICARE, SELFPAY ==
[2022-10-17] VITALS (12 sets, daily range): BP systolic 101–134; BP diastolic 42–86; PULSE 91–118; RESP 16–25; TEMP 36.2–36.9; O2SAT 97–100; BMI 21.2; BMI 24.5
--- NOTE | ~2022-10-17 | XR_ITS ---
EXAMINATION: XR chest 1V portable DATE: 10/17/2022 11:21 INDICATION: Hypoxia. TECHNIQUE: frontal view of the chest was obtained. COMPARISON: Chest radiograph dated 09/27/2022 FINDINGS: Persistent elevation of the right hemidiaphragm. No focal airspace opacities, pulmonary edema, pleura l effusion or pneumothorax. Heart size is normal. Instrumented posterior spinal fusion at the cervico thoracic junction extending into the lower cervical spine and beyond the cephalad margin of the field -of-view. IMPRESSION: 1. No acute cardiopulmonary disease. Reviewed, dictated and finalized at location [facility]. BOT[facility] PRN
--- NOTE | ~2022-10-17 | CT_ITS ---
EXAMINATION: CT abdomen pelvis w con DATE: 10/17/2022 15:12 INDICATION: Nausea, vomiting, concern for gastrointestinal bleed. TECHNIQUE: Computed tomography (CT) of the abdomen and pelvis was performed with 100 CC Omnipaque 350 intravenous contrast. Automated exposure control and iterative reconstruction technique were employe d. Exam dose: 648.32 mGy-cm total exam DLP. COMPARISON: None. FINDINGS: Examination is limited by patient extremity contracture deformities. There is wedge-shaped atelectasis and/or consolidation in the posteromedial right lower lobe in addit ion to mild patchy bilateral lower lobe infiltrate or atelectasis. Cardiomegaly. No pericardial or pleural effusion. Approximately 3.7 mm probable right hepatic cyst (series 4 image 54). There is a calcified hepatic gr anuloma. Normal splenic size. No pancreatic mass lesion, calcification or pancreatic or bile duct dilatation. No gallbladder wall thickening or pericholecystic fluid or fat stranding. Normal morphology of the adrenal glands. There are at least 4 right renal cysts, the largest measuring up to 2.6 cm. 1 cm left renal cyst. There is variable intensity of enhancement of the left kidney which raises suggestion of possible leelee lonephritis. No renal calculus or hydronephrosis of either kidney is noted.. One or 2 small focal calcifications are noted either at the posterolateral urinary bladder wall or adelaida men (series 4 image 141 and images 145-146). Prone or left lateral decubitus CT examination would be helpful to determine if these are mobile and free within the bladder lumen consistent with small ston e or stones versus fixed immobile small calcification or calcifications of the bladder wall. There is moderate diffuse bladder wall thickening; which might be due to prostatomegaly or cystitis. Elongated normal appearing appendix. There is a prominent of fecal material in the rectum and colon. No bowel obstruction or intraperitoneal free air is detected. There is wide patency of the celiac and superior mesenteric arteries. There is calcification at the o rigin of the left inferior mesenteric artery. Bilateral renal artery calcification. No abdominal aort ic aneurysm. No intraperitoneal or retroperitoneal or pelvic mass lesion or adenopathy or ascites. Suggestion of decubitus ulcer inferomedial right buttock posterior to the sacrum. Degenerative changes of the thoracic and lumbar spine and hips. No suspicious osteolytic or osteoblas tic lesions are noted. IMPRESSION: Bilateral lower lobe infiltrate and/atelectasis, greater on the right Cardiomegaly Probable small right hepatic cyst Bilateral renal cysts Variable left renal enhancement which suggests possible pyelonephritis Diffuse thickening and urinary bladder wall which may be due to prostatomegaly or cystitis 2. Subtle calcifications are suggested at the posterolateral aspect of the urinary bladder on the rig ht, possibly small calcifications of the wall or small calculi within the bladder lumen; consider pro ne or left lateral decubitus CT images of the bladder to differentiate these possibilities Prominent of fecal material within the rectum and colon; no bowel obstruction or free air Reviewed, dictated and finalized at [facility]. Reviewed, dictated and finalized at location [facility]. DRIVER IMPRESSION: Bilateral lower lobe infiltrate and/atelectasis, greater on the ri ght Cardiomegaly Probable small right hepatic cyst Bilateral renal cysts Variable left renal enhancement which suggests possible pyelonephritis Diffuse thickening and urinary bladder wall which may be due to prostatomegaly or cystitis 2. Subtle calcifications are suggested at the posterolateral aspect of the urin maximus bladder on the right, possibly small lebron
--- NOTE | ~2022-10-17 | XR_ITS ---
EXAMINATION: XR chest port-a-cath/central DATE: 10/17/2022 13:11 INDICATION: Central line insertion TECHNIQUE: frontal view of the chest was obtained. COMPARISON: Chest radiograph dated 10/17/2022 at 11:16 AM FINDINGS: New left internal jugular central venous catheter with distal tip at the cephalad superior vena cava. Elevation the right hemidiaphragm. No focal airspace opacities, pulmonary edema, pleural effusion or pneumothorax. Relatively symmetric nipple shadows projects over the lateral left lower lung zone in the lateral right chest wall. Heart size is normal. Incompletely visualized instrumented posterior sp inal fusion at the cervicothoracic junction. IMPRESSION: 1. Left internal jugular central venous catheter tip at the cephalad superior vena cava. 2. No acute cardiopulmonary disease. Reviewed, dictated and finalized at location [facility]. [facility] IMPRESSION: 1. Left internal jugular central venous catheter tip at the cephalad superior v dorene cava. 2. No acute cardiopulmonary disease.
--- NOTE | 2022-10-17 10:19 | ED.NAVMDI ---
HPI - Nausea/Vomiting/Diarrhea General Chief complaint: Nausea/Vomiting/Diarrhea Stated complaint: vomiting Time Seen by Provider: 10/17/22 10:18 Source: patient and EMS Mode of arrival: EMS Limitations: no limitations History of Present Illness HPI Narrative: The patient is an 82-year-old male with a history of quadriplegia, secondary to incomplete cervical spine injury, schizophrenia presenting to the emergency department for evaluation of nausea, vomiting, abdominal pain. Patient noted to have dark emesis today, concern for hematemesis from the care facility. Patient is reporting mild, diffuse abdominal pain with nausea and several episodes of emesis today. Patient without fever, chills. No diarrhea. Patient was admitted to this facility per chart review with history of urosepsis, has been at care facility since that point. Related Data Home Medications Medication Instructions Recorded Confirmed ascorbic acid (vitamin C) 500 mg 500 mg PO BID 09/28/22 09/28/22 tablet baclofen 10 mg tablet 20 mg PO TID 09/28/22 09/28/22 bisacodyl 5 mg tablet,delayed 5 mg PO DAILY PRN Constipation 09/28/22 09/28/22 release cyanocobalamin (vitamin B-12) 1,000 mcg PO DAILY 09/28/22 09/28/22 1,000 mcg tablet docusate sodium 100 mg capsule 100 mg PO BID 09/28/22 09/28/22 (Colace) duloxetine 60 mg capsule,delayed 60 mg PO DAILY 09/28/22 09/28/22 release magnesium 250 mg tablet 250 mg PO DAILY 09/28/22 09/28/22 melatonin 3 mg tablet 3 mg PO HS PRN Insomnia 09/28/22 09/28/22 multivitamin with minerals-folic 1 tablet PO DAILY 09/28/22 09/28/22 acid 0.4 mg tablet polyethylene glycol 3350 17 17 g PO DAILY 09/28/22 09/28/22 gram/dose oral powder (Miralax) potassium chloride 10 mEq 10 meq PO DAILY 09/28/22 09/28/22 capsule,extended release Allergies Allergy/AdvReac Type Severity Reaction Status Date / Time Penicillins Allergy Unknown Verified 09/27/22 16:39 Review of Systems Review of Systems: CONSTITUTIONAL: Denies fever, chills, or sweats. EYES: Denies visual changes, redness, or discharge. ENT: Denies rhinorrhea, congestion, sore throat, or otalgia. CARDIOVASCULAR: Denies chest pain, palpitations, or edema. RESPIRATORY: Denies cough or dyspnea. GASTROINTESTINAL: Reports abdominal pain, nausea, vomiting, reports loose stool GENITOURINARY: Denies dysuria or hematuria. SKIN: Denies rash or itching. MUSCULOSKELETAL: Denies back pain, joint pain, or myalgia. NEUROLOGIC: Denies headache PMFSH Past Medical History Medical History Chronic pain Quadriplegia Sepsis Urinary tract infection Surgical History Surgical History H/O cataract extraction H/O Spinal surgery Family History Family History Father Hypertension Mother Hypertension Social History Social History (Updated 10/17/22 @ 17:42 by Amie Aceves NP) Social History: [facility] and [place]. The patient is . 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 His is the durable power attorney at law. As well as his son Kyree. Code status full code Smoking status: Former smoker Alcohol intake: unknown Substance use: unknown Spiritual care concerns: No Exam Narrative: GENERAL: Awake, alert, conversant HEAD: Normocephalic, atraumatic. EYES: PERRLA and EOMI. ENT: Nares clear, no rhinorrhea or epistaxis. Mucous membranes dry. NECK: Supple. CHEST: No respiratory distress, breathing even and non labored HEART: Tachycardic rate, sinus rhythm ABDOMEN:Non distended, mildly tender throughout, nonrigid EXTREMITIES: Chronic contractures of the upper and lower extremities consistent with quadriplegia SKIN: Warm, dry, no rash. NEURO:Alert and oriented x3 Course Vital Signs Vital signs: Vital Signs Temperature 36.3 C
--- NOTE | 2022-10-17 11:01 | ECG_ITS ---
Measurements Intervals [place] Rate: 101 P: 60 DE: 167 QRS: 19 QRSD: 82 T: 0 QT: 345 QTc: 448 Interpretive Statements SINUS TACHYCARDIA WITH OCCASIONAL VENTRICULAR PREMATURE COMPLEXES WITH FREQUENT SUPRAVENTRICULAR PREMATURE COMPLEXES. CONSIDER MULTIFOCAL ATRIAL TACHYCARDIA NONSPECIFIC T-WAVE ABNORMALITY ABNORMAL ECG NO PREVIOUS ECG AVAILABLE FOR COMPARISON Electronically Signed On 10-17-2022 15:36:47 TYPIST by Costa Duffy M.D.
--- NOTE | 2022-10-17 11:02 | PC.NURSE ---
Call out to Cassandra Counts to assist with IV access. MD attempted IV access with ultrasound and unable to get blood. MD also put call out to Cassandra.
[2022-10-17 13:08] LABS: Mean Corpuscular HGB Conc 31.4 g/dl (32-36); Mean Corpuscular Hemoglobin 27.3 pg (26-34); Mean Corpuscular Volume 86.9 fl (80-100); Mean Platelet Volume 12.1 fl (7.4-10.4); Platelet Count Result 216 k/mm3 (150-375); Red Blood Count 1.98 M/mm3 (4.6-6.20); Red Cell Distribution Width 17.4 % (11.5-14.5); White Blood Count 21.3 K/mm3 (4.5-10.0)
[2022-10-17 13:14] LABS: Hematocrit 17.2 % (42.0-52.0); Hemoglobin 5.4 g/dL (14.0-18.0)
[2022-10-17 13:21] LABS: Lymphocytes Absolute Manual 3.62 K/mm3 (1.1-4.5); Monocytes Absolute Manual 0.63 K/mm3 (0.1-0.90); Monocytes Percent Manual 3 % (3-9); Neutrophils Percent Manual 80 % (46-73); Total Cells Counted 100
[2022-10-17 13:22] LABS: Anisocytosis 1+ (NORMAL); Microcytosis 1+ (NORMAL); Platelet Estimate Adequate (Adequate); Schistocytes None Seen (NORMAL)
[2022-10-17 13:23] LABS: Ovalocytes 1+ (NORMAL)
[2022-10-17 13:25] LABS: Lactic Acid Reflex 2.3 mmol/L (0.7-2.0)
[2022-10-17 13:29] LABS: Alanine Aminotransferase 14 U/L (6-50); Albumin Level 3.6 g/dL (3.5-5.1); Alkaline Phosphatase 69 U/L (38-126); Anion Gap 7 mmol/L (8-16); Aspartate Amino Transferase 22 U/L (17-59); Blood Urea Nitrogen 54 mg/dL (9-20); Calcium 8.3 mg/dL (8.4-10.2); Carbon Dioxide 23 mmol/L (22-30); Chloride 103 mmol/L (98-107); Estimated CRCL calculation 63 ml/min; Estimated Glomerular Filt Rate > 60; Glucose 144 mg/dL (65-110); Lipase 29 U/L (23-300); Potassium 4.3 mmol/L (3.4-5.0); Sodium 133 mmol/L (137-145)
[2022-10-17 13:38] LABS: Troponin I 0.034 ng/mL (0.000-0.034)
[2022-10-17 13:45] LABS: Bilirubin,Total 0.2 mg/dL (0.2-1.3); Influenza A QL RT-PCR Negative (Negative); Influenza B QL RT-PCR Negative (Negative); RSV RNA, RT-PCR Negative (Negative); SARS-CoV-2 RNA PCR Negative
[2022-10-17 13:52] LABS: Hematocrit 17.2 % (42.0-52.0); Hemoglobin 5.4 g/dL (14.0-18.0)
[2022-10-17] MEDS: SODIUM CHLORIDE 0.9% IV 1,000 ML 999 ML IV CONT ×3 (13:57→16:43)
[2022-10-17] MEDS: PANTOPRAZOLE SODIUM IV 40 MG VIAL 80 MG IV PUSH (13:58)
[2022-10-17] MEDS: ONDANSETRON INJ 4 MG/2 ML VIAL IV PUSH (14:07)
[2022-10-17] MEDS: TUBING, BLOOD PLUM PUMP TUBING 1 EACH XX (15:34)
[2022-10-17] MEDS: SODIUM CHLORIDE 0.9% IV 250 ML 30 ML IV CONT (15:34)
[2022-10-17 15:39] LABS: Ammonia < 9 umol/L (9-30)
--- NOTE | 2022-10-17 15:50 | PM.IMHP ---
H&P: HPI History of Present Illness Date/Time: 10/17/22 15:50 Chief Complaint: Nausea vomiting diarrhea Narrative: This is a 82-year-old male patient who is quadriplegic. 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 The patient resides at a facility and he was brought to the emergency room for evaluation of nausea vomiting abdominal pain. The patient had dark emesis today and also he had a bloody stools. He has had several episodes of diarrhea today. He denied any fever chills. The patient is from [facility] rehab facility. Patient's abdominal pelvis CT was read as the followinglateral lower lobe infiltrate and/atelectasis, greater on the right Cardiomegaly Probable small right hepatic cyst Bilateral renal cysts Variable left renal enhancement which suggests possible pyelonephritis Diffuse thickening and urinary bladder wall which may be due to prostatomegaly or cystitis 2. Subtle calcifications are suggested at the posterolateral aspect of the urinary bladder on the right, possibly small calcifications of the wall or small calculi within the bladder lumen; consider prone or left lateral decubitus CT images of the bladder to differentiate these possibilities Prominent of fecal material within the rectum and colon; no bowel obstruction or free air Chest x-ray was read as the following?Left internal jugular central venous catheter tip at the cephalad superior vena cava. 2. No acute cardiopulmonary disease. The patient is quadriplegic and therefore a IJ was placed due to inability to place an IV. Patient's H&H dropped down to 5.4 and 17.2. Previously his H&H was 11.8 and 36.0 on 10/03/2022. The patient's blood transfusion has already been started. The patient was given IV fluids, Zofran, Protonix, and started on Rocephin for UTI. The patient was discharged from this facility on 10/03/2022 with a UTI. The patient's blood culture from 09/27/2022 shows Proteus mirabilis. The patient is being admitted to inpatient status on the date of service of 10/17/2022. Review of Systems Review of Systems: See HPI All systems reviewed & are unremarkable except as noted in HPI and below Constitutional: Constitutional: Reports as per HPI and Reports no additional constitutional complaints Eyes: Eyes: Reports as per HPI and Reports no additional eye complaints ENT: Reports system reviewed and no additional complaints, except as documented and Reports Normal hearing present Cardiovascular: Cardiovascular: Reports no additional cardiovascular complaints Respiratory: Respiratory: Reports no additional respiratory complaints and Reports no additional respiratory complaints Gastrointestinal: Gastrointestinal: Reports as per HPI and Reports no additional gastrointestinal complaints Musculoskeletal: Musculoskeletal: Reports no additional musculoskeletal complaints Integumentary/Breasts: Skin/Breast: Reports system reviewed and no additional complaints, except as docu and Reports as per HPI Neurologic: Reports system reviewed and no additional complaints, except as documented, Reports as per HPI and Reports Normal hearing present Psychiatric: Psychiatric: Reports no additional psychiatric complaints and Reports as per HPI Endocrine: Endocrine: Reports no additional endocrine complaints Hematologic/Lymphatic: Hematologic/Lymphatic: Reports no additional hematologic/lymphatic complaints Allergic/Immunologic: Allergic/Immunologic: Reports no additional allergic/immunologic complaints PMFSH Past Medical History Medical History Chronic pain Quadriplegia Sepsis Urinary tract infection Surgical History Surgical History H/O cataract extraction H/O Spinal surgery Family History Family History Father Hypertension Mother Hypertension Social Hist
[2022-10-17 15:59] LABS: Toxigenic C. Diff NEGATIVE (NEGATIVE)
[2022-10-17 16:06] LABS: Troponin I 0.036 ng/mL (0.000-0.034)
[2022-10-17 16:06] LABS: Reflex Lactic Acid Yes or No Add Lactic
[2022-10-17 19:02] LABS: Lactic Acid 2.4 mmol/L (0.7-2.0)
[2022-10-17 19:04] LABS: INR 1.2; Partial Thromboplastin Time 29.8 SECONDS (22.3-36.8)
--- NOTE | 2022-10-17 19:55 | PC.NURSE ---
1809- received pt from ER to room 232 via stretcher. pt awake alert- resp nonlabored. 2nd unit PRBC infusing Left IJ Central line site- ( started in ER). Monitor SR. VSS
--- NOTE | 2022-10-17 20:33 | PC.NURSE ---
2nd unit PRBC unit # [id number] started in ER- was not scanned unable to complete documentation. pt received entire unit 350cc - with no adverse reaction,vss
[2022-10-17 20:56] LABS: Hemoglobin 7.5 g/dL (14.0-18.0)
[2022-10-18] VITALS (25 sets, daily range): BP systolic 85–124; BP diastolic 33–75; PULSE 80–98; RESP 14–23; TEMP 36.3–37.6; O2SAT 95–100; BMI 24.5
[2022-10-18] MEDS: oxyCODONE/ACETAMINOPHEN (*CRX) 5-325 MG TABLET 1 TABLET PO ×2 (00:14→17:14)
[2022-10-18] MEDS: MELATONIN 3 MG TABLET PO (00:14)
[2022-10-18] MEDS: BACLOFEN 10 MG TABLET 20 MG PO ×4 (00:14→17:14)
[2022-10-18] MEDS: SODIUM CHLORIDE 0.9% IV 1,000 ML 100 ML IV CONT ×3 (00:15→22:14)
[2022-10-18 05:20] LABS: Basophils Absolute Auto 0.1 K/mm3 (0.0-0.1); Basophils Percent Auto 0.3 % (0.2-1.2); Eosinophils Absolute Auto 0.2 K/mm3 (0-0.3); Immature Granulocyte Absolute 0.11 K/mm3 (0.00-0.031); Immature Granulocyte Percent A 0.6 % (0-0.5); Immature Platelet Fraction Pct 6.2 % (0.9-11.2); Lymphocytes Absolute Auto 2.61 K/mm3 (0.9-3.2); Lymphocytes Percent Auto 15.2 % (18.3-44.2); Mean Corpuscular HGB Conc 32.8 g/dl (32-36); Mean Corpuscular Hemoglobin 28.8 pg (26-34); Mean Corpuscular Volume 87.6 fl (80-100); Mean Platelet Volume 11.4 fl (7.4-10.4); Monocytes Absolute Auto 1.7 K/mm3 (0.1-0.6); Monocytes Percent Auto 9.8 % (2.6-8.5); Neutrophils Absolute Auto 12.5 K/mm3 (1.3-6.7); Neutrophils Percent Auto 73.1 % (45.5-73.1); Platelet Count Result 141 k/mm3 (150-375); Red Blood Count 2.33 M/mm3 (4.6-6.20); Red Cell Distribution Width 16.7 % (11.5-14.5); White Blood Count 17.2 K/mm3 (4.5-10.0)
[2022-10-18 05:24] LABS: Hemoglobin 6.7 g/dL (14.0-18.0)
[2022-10-18 05:25] LABS: Hematocrit 20.4 % (42.0-52.0)
[2022-10-18 05:41] LABS: Alanine Aminotransferase 13 U/L (6-50); Albumin Level 3.2 g/dL (3.5-5.1); Alkaline Phosphatase 67 U/L (38-126); Anion Gap 5 mmol/L (8-16); Aspartate Amino Transferase 24 U/L (17-59); Bilirubin,Total 0.4 mg/dL (0.2-1.3); Blood Urea Nitrogen 32 mg/dL (9-20); Calcium 7.6 mg/dL (8.4-10.2); Carbon Dioxide 21 mmol/L (22-30); Chloride 110 mmol/L (98-107); Estimated CRCL calculation 69 ml/min; Estimated Glomerular Filt Rate > 60; Glucose 95 mg/dL (65-110); Magnesium 1.8 mg/dL (1.6-2.3); Sodium 136 mmol/L (137-145)
[2022-10-18 07:11] LABS: Free T4 Free Thyroxine Reflex 1.22 ng/dL (0.78-2.19)
[2022-10-18] MEDS: SODIUM CHLORIDE 0.9% IV 250 ML 30 ML IV CONT ×2 (08:00→22:03)
[2022-10-18] MEDS: TUBING, BLOOD PLUM PUMP TUBING 1 EACH XX (08:00)
[2022-10-18] MEDS: THERAPEUTIC MULTIVITAMINS/MINERALS TAB (*BKC) 1 TABLET PO (08:03)
[2022-10-18] MEDS: POTASSIUM CHLORIDE 10 MEQ TABLET.ER PO (08:03)
[2022-10-18] MEDS: DULoxetine HCL 60 MG CAPSULE.DR PO (08:04)
[2022-10-18] MEDS: ASCORBIC ACID 500 MG TABLET PO (08:05)
[2022-10-18] MEDS: CYANOCOBALAMIN 1,000 MCG TABLET 1000 MCG PO (08:05)
[2022-10-18] MEDS: DOCUSATE SODIUM 100 MG CAPSULE PO (08:05)
[2022-10-18] MEDS: MAGNESIUM OXIDE 200 MG TABLET PO (08:05)
[2022-10-18 08:20] LABS: Total Triiodothyronine (T3) 1.14 NG/ML (0.97-1.69)
[2022-10-18] MEDS: oxyCODONE HCL (*CRX) 2.5 MG TAB IR PO (08:22)
--- NOTE | 2022-10-18 10:21 | WPDANESEPPF ---
Anes - Initial Pre Proc Eval Procedure: Operation Date: 10/18/22 15:30 Proposed Procedures p Esophagogastroduodenoscopy - Lobo Monzon MD Date/Time: 10/18/22 10:21 Surgeon: Donal Bee MD Pre Op Diagnosis: GI Bleed/Anemia Patient Data Age: 82 Gender: M Height: 1.65 m Weight: 66.7 kg Last Vital Signs Temp 37.1 C 10/18/22 10:20 Pulse 94 10/18/22 10:20 Resp 18 10/18/22 10:20 BP 124/63 10/18/22 10:20 Pulse Ox 98 10/18/22 10:20 O2 Del Method Room Air 10/18/22 10:20 Allergies Allergy/AdvReac Type Severity Reaction Status Date / Time Penicillins Allergy Unknown Verified 10/18/22 10:19 Home Medications Medication Instructions Recorded Confirmed Type ascorbic acid (vitamin C) 500 mg 500 mg PO Q12H 09/28/22 10/17/22 History tablet baclofen 10 mg tablet 20 mg PO TID 09/28/22 10/17/22 History bisacodyl 5 mg tablet,delayed 5 mg PO DAILY PRN Constipation 09/28/22 10/17/22 History release cyanocobalamin (vitamin B-12) 1,000 mcg PO DAILY 09/28/22 10/17/22 History 1,000 mcg tablet docusate sodium 100 mg capsule 100 mg PO Q12H 09/28/22 10/17/22 History (Colace) duloxetine 60 mg capsule,delayed 60 mg PO DAILY 09/28/22 10/17/22 History release magnesium 250 mg tablet 250 mg PO DAILY 09/28/22 10/17/22 History melatonin 3 mg tablet 3 mg PO HS PRN Insomnia 09/28/22 10/17/22 History multivitamin with minerals-folic 1 tablet PO DAILY 09/28/22 10/17/22 History acid 0.4 mg tablet polyethylene glycol 3350 17 17 g PO DAILY 09/28/22 10/17/22 History gram/dose oral powder (Miralax) potassium chloride 10 mEq 10 meq PO DAILY 09/28/22 10/17/22 History capsule,extended release oxycodone-acetaminophen 7.5 mg-325 1 tablet PO Q6H PRN Pain #12 tabs 10/03/22 10/17/22 Rx mg tablet (Percocet) acetaminophen 325 mg tablet 650 mg PO Q6H PRN Pain (Scale 10/17/22 10/17/22 History (Tylenol) Score 1-3) Laboratory Tests 10/17/22 10/17/22 10/17/22 13:01 13:01 13:01 WBC 21.3 K/mm3 H K/mm3 (4.5-10.0) RBC 1.98 M/mm3 L M/mm3 (4.6-6.20) Hgb 5.4 g/dL L* D g/dL (14.0-18.0) Hct 17.2 % L* % (42.0-52.0) MCV 86.9 fl fl (80-100) MCH 27.3 pg pg (26-34) MCHC 31.4 g/dl L g/dl (32-36) RDW 17.4 % H % (11.5-14.5) Plt Count 216 k/mm3 k/mm3 (150-375) MPV 12.1 fl H fl (7.4-10.4) Immature Gran % (Auto) Not Reportable Neut % (Auto) Not Reportable Lymph % (Auto) Not Reportable [place] % (Auto) Not Reportable Eos % (Auto) Not Reportable Baso % (Auto) Not Reportable Lymph # (Auto) Not Reportable [place] # (Auto) Not Reportable Eos # (Auto) Not Reportable Baso # (Auto) Not Reportable Abs Immat Gran (auto) Not Reportable Absolute Neuts (auto) Not Reportable Absolute Nucleated RBC Not Reportable Total Counted 100 Neutrophils % (Manual) 80 % H % (46-73) Lymphocytes % (Manual) 17.0 % L % (18-44) Monocytes % (Manual) 3 % % (3-9) Nucleated RBC % Not Reportable Abs Lymphs (Manual) 3.62 K/mm3 K/mm3 (1.1-4.5) Abs Monocytes (Manual) 0.63 K/mm3 K/mm3 (0.1-0.90) Platelet Estimate Adequate (Adequate) % Immature Plt Fraction Anisocytosis 1+ (NORMAL) Microcytosis 1+ (NORMAL) Ovalocytes 1+ (NORMAL) Schistocytes None seen (NORMAL) PT INR APTT Sodium 133 mmol/L L mmol/L (137-145) Potassium 4.3 mmol/L mmol/L (3.4-5.0) Chloride 103 mmol/L mmol/L (98-107) Carbon Dioxide 23 mmol/L mmol/L (22-30) Anion Gap 7 mmol/L L mmol/L (8-16) BUN 54 mg/dL H D mg/dL (9-20) Creatinine 0.70
[2022-10-18] MEDS: LACTATED RINGERS 1,000 ML 150 ML IV CONT (10:23)
--- NOTE | 2022-10-18 10:50 | WPDGICN ---
Assessment and Plan Assessment and plan (1) Hematemesis: Code(s): K92.0 - Hematemesis Status: Acute Assessment and Plan: patient here with coffee ground emesis and melena, also drop in hemoglobin on iv protonix will proceed with urgent egd ? ulcer, esophagitis, avm, etc (2) Acute GI bleeding: Code(s): K92.2 - Gastrointestinal hemorrhage, unspecified Status: Acute Assessment and Plan: supportive care, protonix s/p blood transfusion (3) Acute blood loss anemia: Code(s): D62 - Acute posthemorrhagic anemia Status: Acute Assessment and Plan: keep hb>7 (4) Quadriplegia: Code(s): G82.50 - Quadriplegia, unspecified Status: Acute (5) Sepsis: Code(s): A41.9 - Sepsis, unspecified organism Status: Acute Assessment and Plan: on admission, better now (6) Pneumonia: Code(s): J18.9 - Pneumonia, unspecified organism Status: Acute Assessment and Plan: started on abx (7) Urinary tract infection: Code(s): N39.0 - Urinary tract infection, site not specified Status: Acute GI Consult Note Consult date/time: 10/18/22 10:50 Reason for consult: hematemesis, acute blood loss anemia HPI: Alyson Mares is a 82 year old male who is?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 He came after new onset of dark emesis and then noted dark bloody stools.? CT a/p reviewed and showed lateral lower lobe infiltrate and/atelectasis, greater on the right, Cardiomegaly, possible pyelonephritis with diffuse thickening and urinary bladder wall which may be due to prostatomegaly or cystitis, Prominent of fecal material within the rectum and colon; no bowel obstruction or free air. ER phyisican placed a central line, hb low at 5.4 (baseline 11.8) and he received blood transfusion and fluids, also iv Zofran, Protonix, and started on Rocephin for UTI.? Review of Systems Constitutional: Constitutional: Denies weakness Comments: quadraplejic Eyes: Eyes: Denies blurry vision ENT: Reports Normal hearing present, Denies headache(s) and Denies neck pain Cardiovascular: Cardiovascular: Denies chest pain and Denies dyspnea Respiratory: Respiratory: Denies dyspnea Gastrointestinal: Gastrointestinal: Reports melena, Reports nausea, Reports vomiting and Reports hematemesis Genitourinary: Genitourinary: Denies dysuria Musculoskeletal: Comments: paraplejic Integumentary/Breasts: Skin/Breast: Denies dry skin Neurologic: Reports Normal hearing present and Denies headache(s) Psychiatric: Psychiatric: Denies anxiety Endocrine: Endocrine: Denies change in body appearance Hematologic/Lymphatic: Hematologic/Lymphatic: Denies easy bleeding Allergic/Immunologic: Allergic/Immunologic: Denies urticaria PMFSH Past Medical History Medical History (Updated 10/18/22 @ 12:03 by Lobo Monzon MD) Acute blood loss anemia Anemia Chronic pain Hematemesis Quadriplegia Urinary tract infection Surgical History Surgical History H/O cataract extraction H/O Spinal surgery Family History Family History Father Hypertension Mother Hypertension Social History Social History Social History: [facility] and [facility]. The patient is . 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 His is the durable power litigation attorney. As well as his son Kyree. Code status full code Smoking status: Former smoker Alcohol intake: never Substance use: never Lack of Transportation: YES Lack of Food: Never True Current Housing: I Do Not Have Housing Concerned About Future Housing: No Difficulty Paying Gas/Electric Bills: No Difficulty
[2022-10-18] MEDS: CENTRAL LINE FLUSH 10 ML IV PUSH ×2 (13:04→22:02)
[2022-10-18 13:05] LABS: Hematocrit 23.3 % (42.0-52.0); Hemoglobin 7.6 g/dL (14.0-18.0)
--- NOTE | 2022-10-18 18:21 | PM.IMPN ---
Progress Note: A&P Assessment and Plan (1) Pneumonia: Code(s): J18.9 - Pneumonia, unspecified organism Status: Acute Assessment and Plan: Azithromycin and Rocephin -tailor antibiotics to culture P.r.n. albuterol (2) Acute GI bleeding: Code(s): K92.2 - Gastrointestinal hemorrhage, unspecified Status: Acute Assessment and Plan: -H&H q.6 -GI has been consulted -continue with PPI 10/18/2022 interval history:: patient with history of quadriplegia due to incomplete cervical spine injury was brought emergency depart upon arrival his hemoglobin was 5 point home patient received pack RBC there was improvement in his hemoglobin than his hemoglobin dropped and was seen by GI nurse taken to GI lab for EGD and patient was found to have duodenal ulcer however there is no acute bleeding, patient denies any abdominal pain nausea or vomiting will continue to monitor. (3) Chronic pain: Code(s): G89.29 - Other chronic pain Status: Acute Assessment and Plan: The patient is quadriplegic and has chronic pain. -continue with his baclofen -continue with his Percocet Continue with duloxetine (4) Anemia: Code(s): D64.9 - Anemia, unspecified Status: Inactive Assessment and Plan: Patient has typed and cross-matched and transfuse as necessary. (5) Urinary tract infection: Code(s): N39.0 - Urinary tract infection, site not specified Status: Acute Assessment and Plan: -urine cultures are pending blood cultures are pending tailor antibiotics to cultures. -patient is on Rocephin. (6) Quadriplegia: Code(s): G82.50 - Quadriplegia, unspecified Status: Acute Assessment and Plan: -this is chronic. Subjective Date/time seen: 10/18/22 18:21 Nausea vomiting diarrhea Narrative: This is a 82-year-old male patient who is quadriplegic.? The patient is quadriplegic due to a incomplete cervical spine injury.? The patient resides at a facility and he was brought to the emergency room for evaluation of nausea vomiting abdominal pain.? The patient had dark emesis today and also he had a bloody stools.? He has had several episodes of diarrhea today.? He denied any fever chills.? [facility] Patient's abdominal pelvis CT was read as the followinglateral lower lobe infiltrate and/atelectasis, greater on the right Cardiomegaly Probable small right hepatic cyst Bilateral renal cysts Variable left renal enhancement which suggests possible pyelonephritis Diffuse thickening and urinary bladder wall which may be due to prostatomegaly or cystitis 2. Subtle calcifications are suggested at the posterolateral aspect of the urinary bladder on the right, possibly small calcifications of the wall or small calculi within the bladder lumen; consider prone or left lateral decubitus CT images of the bladder to differentiate these possibilities Prominent of fecal material within the rectum and colon; no bowel obstruction or free air Chest x-ray was read as the following?Left internal jugular central venous catheter tip at the cephalad superior vena cava. 2. No acute cardiopulmonary disease. The patient is quadriplegic and therefore a IJ was placed due to inability to place an IV.? Patient's H&H dropped down to 5.4 and 17.2.? Previously his H&H was 11.8 and 36.0 on 10/03/2022.? The patient's blood transfusion has already been started.? The patient was given IV fluids, Zofran, Protonix, and started on Rocephin for UTI.? The patient was discharged from this facility on 10/03/2022 with a UTI.? The patient's blood culture from 09/27/2022 shows Proteus mirabilis.? The patient is being admitted to inpatient status on the date of service of 10/17/2022. 10/18/2022 interval history:: patient with history of quadriplegia due to incomplete cervical spine injury was brought emergency depart upon arrival his hemoglobin was 5 point home patient receive
[2022-10-18] MEDS: PANTOPRAZOLE SODIUM IV 40 MG VIAL IV PUSH (22:02)
[2022-10-19] VITALS (12 sets, daily range): BP systolic 97–144; BP diastolic 44–67; PULSE 65–97; RESP 14–18; TEMP 36.4–37.9; O2SAT 94–98
[2022-10-19] MEDS: CENTRAL LINE FLUSH 10 ML IV PUSH ×3 (05:27→20:33)
[2022-10-19 06:08] LABS: Alanine Aminotransferase 16 U/L (6-50); Albumin Level 3.7 g/dL (3.5-5.1); Alkaline Phosphatase 87 U/L (38-126); Anion Gap 6 mmol/L (8-16); Aspartate Amino Transferase 35 U/L (17-59); Bilirubin,Total 0.6 mg/dL (0.2-1.3); Blood Urea Nitrogen 13 mg/dL (9-20); Calcium 8.3 mg/dL (8.4-10.2); Carbon Dioxide 22 mmol/L (22-30); Chloride 108 mmol/L (98-107); Estimated CRCL calculation 81 ml/min; Estimated Glomerular Filt Rate > 60; Glucose 102 mg/dL (65-110); Magnesium 1.8 mg/dL (1.6-2.3); Potassium 3.8 mmol/L (3.4-5.0); Sodium 136 mmol/L (137-145)
[2022-10-19] MEDS: ONDANSETRON INJ 4 MG/2 ML VIAL IV PUSH (06:35)
[2022-10-19] MEDS: oxyCODONE HCL (*CRX) 2.5 MG TAB IR PO (06:35)
[2022-10-19] MEDS: oxyCODONE/ACETAMINOPHEN (*CRX) 5-325 MG TABLET 1 TABLET PO (06:36)
[2022-10-19 09:43] LABS: Glucose Point of Care 87 mg/dl (65-105)
--- NOTE | 2022-10-19 09:51 | WPDANESPN ---
Anes - Prog Note Post-Op Date/Time: 10/19/22 09:51 Vital Signs: Last Vital Signs Temp 37.9 C H 10/19/22 08:00 Pulse 88 10/19/22 08:00 Resp 16 10/19/22 08:00 BP 100/52 L 10/19/22 08:00 Pulse Ox 96 10/19/22 08:00 O2 Del Method Room Air 10/19/22 04:00 O2 Flow Rate 2 10/18/22 11:11 Pain Score (VAS): 0 I/O: Intake & Output 10/18/22 10/19/22 10/19/22 23:59 07:59 15:59 Intake Total 1000 380 Balance 1000 380 Laboratory Tests 10/18/22 12:58 10/19/22 05:31 10/17/22 10/17/22 10/18/22 10:22 13:44 12:58 Hgb 7.6 L Hct 23.3 L Sodium Potassium Chloride Carbon Dioxide Anion Gap BUN Creatinine Estim Creat Clear Calc Estimated GFR Glucose POC Capillary Glucose Calcium Magnesium Total Bilirubin AST ALT Alkaline Phosphatase Total Protein Albumin Urine Color Cancelled Urine Appearance Cancelled Urine pH Cancelled Ur Specific [place] Cancelled Urine Protein Cancelled Urine Glucose (UA) Cancelled Urine Ketones Cancelled Ur Blood (Man) Cancelled Urine Nitrate Cancelled Urine Bilirubin Cancelled Urine Urobilinogen Cancelled Leukocyte Esterase Rfl Cancelled Urine RBC Cancelled Urine WBC Cancelled Urine WBC Clumps Cancelled Ur Squamous Epith Cells Cancelled Ur Transition Epith Cell Cancelled Ur Renal Epithelial Cell Cancelled [place] Biurate Crystals Cancelled Calcium Carbonate Cryst Cancelled Calcium Phosphate Cryst Cancelled Calcium Oxalate Crystal Cancelled Leucine Crystals Cancelled Cystine Crystals Cancelled Uric Acid Crystals Cancelled Triple Phos Crystals Cancelled Sulfonamide Crystals Cancelled Cholesterol Crystals Cancelled [place]c Crystals Cancelled Tyrosine Crystals Cancelled Hippuric Acid Crystals Cancelled Other Crystals Cancelled Amorphous Sediment Cancelled Other Sediment Cancelled Urine Bacteria Cancelled Cellular Casts Cancelled Epithelial Casts Cancelled Fatty Casts Cancelled Hyaline Casts Cancelled Granular Casts Cancelled Waxy Casts Cancelled RBC Casts Cancelled WBC Casts Cancelled Urine Starch Cancelled Urine Mucus Cancelled Urine Trichomonas Cancelled Urine Yeast (Budding) Cancelled Ur Oval Fat Bodies Cancelled Blood Type B Positive Antibody Screen Negative Crossmatch See Detail 10/19/22 10/19/22 05:31 09:39 Hgb Hct Sodium 136 L Potassium 3.8 Chloride 108 H Carbon Dioxide 22 Anion Gap 6 L BUN 13 D Creatinine 0.50 L Estim Creat Clear Calc 81 Estimated GFR > 60 Glucose 102 POC Capillary Glucose 87 Calcium 8.3 L Magnesium 1.8 Total Bilirubin 0.6 AST 35 ALT 16 Alkaline Phosphatase 87 Total Protein 7.0 Albumin 3.7 Urine Color Urine Appearance Urine pH Ur Specific [place] Urine Protein Urine Glucose (UA) Urine Ketones Ur Blood (Man) Urine Nitrate Urine Bilirubin Urine Urobilinogen Leukocyte Esterase Rfl Urine RBC Urine WBC Urine WBC Clumps Ur Squamous Epith Cells Ur Transition Epith Cell Ur Renal Epithelial Cell Iggy Biurate Crystals Calcium Carbonate Cryst Calcium Phosphate Cryst Calcium Oxalate Crystal Leucine Crystals Cystine Crystals Uric Acid Crystals Triple Phos Crystals Sulfonamide Crystals Cholesterol Crystals Talc Crystals Tyrosine Crystals Hippuric Acid Crystals Other Crystals Amorphous Sediment Other Sediment Urine Bacteria Cellular Casts Epithelial Casts Fatty Casts Hyaline Casts Granular Casts Waxy Casts RBC Casts WBC Casts Urine Starch Urine Mucus Urine Trichomonas Urine Yeast (Budding) Ur Oval Fat Bodies Blood Type Antibody Screen Crossmatch Microbiology 10/17/22 13:00 Blood Blood Culture - Preliminary 10/17/22 13:00 Blood Blood
[2022-10-19] MEDS: BACLOFEN 10 MG TABLET 20 MG PO ×3 (10:08→18:07)
[2022-10-19] MEDS: ASCORBIC ACID 500 MG TABLET PO ×2 (10:10→20:33)
[2022-10-19] MEDS: DULoxetine HCL 60 MG CAPSULE.DR PO (10:10)
[2022-10-19] MEDS: THERAPEUTIC MULTIVITAMINS/MINERALS TAB (*BKC) 1 TABLET PO (10:10)
[2022-10-19] MEDS: POTASSIUM CHLORIDE 10 MEQ TABLET.ER PO (10:10)
[2022-10-19] MEDS: DOCUSATE SODIUM 100 MG CAPSULE PO ×2 (10:10→20:33)
[2022-10-19] MEDS: CYANOCOBALAMIN 1,000 MCG TABLET 1000 MCG PO (10:10)
[2022-10-19] MEDS: MAGNESIUM OXIDE 200 MG TABLET PO (10:10)
[2022-10-19] MEDS: PANTOPRAZOLE SODIUM IV 40 MG VIAL IV PUSH ×2 (10:10→20:33)
--- NOTE | 2022-10-19 10:37 | WPDGIPROGNO ---
Progress Note: A&P Assessment and Plan (1) Acute blood loss anemia: Code(s): D62 - Acute posthemorrhagic anemia Status: Acute Assessment and Plan: egd showed non-bleeding duodenal ulcer continue with iv protonix bid (2) Hematemesis: Code(s): K92.0 - Hematemesis Status: Acute Assessment and Plan: resolved (3) Duodenal ulcer: Code(s): K26.9 - Duodenal ulcer, unspecified as acute or chronic, without hemorrhage or perforation Status: Acute Assessment and Plan: new finding, no need of endoscopic intervention (4) Quadriplegia: Code(s): G82.50 - Quadriplegia, unspecified Status: Acute (5) Urinary tract infection: Code(s): N39.0 - Urinary tract infection, site not specified Status: Acute (6) Pneumonia: Code(s): J18.9 - Pneumonia, unspecified organism Status: Acute Assessment and Plan: on antibiotics Subjective Date/time seen: 10/19/22 10:37 Interval history: no more bleeding, family member says that he is confused today Review of Systems Review of Systems: All systems reviewed & are unremarkable except as noted in HPI and below Exam Const: General: no acute distress, awake and ill appearing Orientation/consciousness: oriented to person and oriented to place Other: History of quadriplegia HENMT: Head: normal to inspection, normocephalic and atraumatic Ears: hearing grossly normal bilaterally Eyes: General: appearance normal, both eyes and all related structures Neck: Neck: normal visual inspection, full ROM and supple Chest: Chest palpation & inspection: normal inspection of the chest Resp: Effort & Inspection: normal respiratory effort Auscultation: clear to auscultation bilaterally Cardio: Palpation: normal PMI Rhythm: regular rhythm Heart sounds: S1 normal heart sound present and S2 normal heart sound present GI: Inspection: normal to inspection GI Palp: Yes Soft to palpation and No Tenderness to palpation present (GI) Skin: General skin exam: normal color Wounds: no wounds Neuro: Cranial nerves: Yes Normal hearing present Other: The patient has a history of quadriplegia with chronic contractures. Extrem: Other: The patient is contracted Psych: Appearance: grossly normal Insight: Limited insight present (Psych) Judgement: Limited judgement present (Psych) Objective Data Vital Signs Vital Signs: Vital Signs - 24 hr 10/18/22 11:11 10/18/22 11:21 10/18/22 11:31 Temperature Pulse Rate 80 85 83 Respiratory Rate 23 H 22 H 20 Blood Pressure 89/52 L 93/51 L 102/63 Pulse Oximetry 100 100 100 Oxygen Delivery Nasal Cannula Room Air Room Air Oxygen Flow Rate 2 10/18/22 12:00 10/18/22 12:00 10/18/22 13:24 Temperature Pulse Rate 98 83 Respiratory Rate Blood Pressure Pulse Oximetry Oxygen Delivery Room Air Oxygen Flow Rate 10/18/22 12:00 10/18/22 15:52 10/18/22 16:00 Temperature 98.2 F Pulse Rate 84 92 Respiratory Rate 20 Blood Pressure 93/49 L Pulse Oximetry 96 Oxygen Delivery Room Air Oxygen Flow Rate 10/18/22 18:00 10/18/22 16:10 10/18/22 20:00 Temperature 98.4 F 99.6 F Pulse Rate 94 91 86 Respiratory Rate 20 18 Blood Pressure 111/41 L 85/33 L Pulse Oximetry 95 Oxygen Delivery Oxygen Flow Rate 10/18/22 21:52 10/18/22 22:14 10/18/22 23:14 Temperature 99.1 F 99.4 F 98.2 F Pulse Rate 92 97 95 Respiratory Rate 22 H 14 16 Blood Pressure 92/49 L 121/60 110/58 L Pulse Oximetry 98 97 96 Oxygen Delivery Oxygen Flow Rate 10/18/22 23:29 10/19/22 00:14 10/18/22 20:00 Temperature 98.2 F 99.7 F H Pulse Rate 95 65 Respiratory Rate 16 16 Blood Pressure 110/58 L 110/51 L Pulse Oximetry 96 94 Oxygen Delivery Room Air Oxygen Flow Rate 10/19/22 00:00 10/18/22 20:00 10/18/22 22:00 Temperature Pulse Rate 87 87 Respiratory Rate Blood Pressure Pulse Oximetry Oxygen Delivery Room
[2022-10-19 11:50] LABS: Hemoglobin 8.8 g/dL (14.0-18.0); Immature Platelet Fraction Pct 8.2 % (0.9-11.2); Mean Corpuscular HGB Conc 32.6 g/dl (32-36); Mean Corpuscular Hemoglobin 28.5 pg (26-34); Mean Corpuscular Volume 87.4 fl (80-100); Mean Platelet Volume 11.2 fl (7.4-10.4); Platelet Count Result 107 k/mm3 (150-375); Red Blood Count 3.09 M/mm3 (4.6-6.20); Red Cell Distribution Width 17.5 % (11.5-14.5); White Blood Count 10.4 K/mm3 (4.5-10.0)
[2022-10-19] MEDS: SODIUM CHLORIDE 0.9% IV 1,000 ML 100 ML IV CONT ×2 (12:38→22:40)
[2022-10-20] VITALS (8 sets, daily range): BP systolic 130–169; BP diastolic 63–77; PULSE 62–101; RESP 16–30; TEMP 36.6–37; O2SAT 97–100
[2022-10-20] MEDS: CENTRAL LINE FLUSH 10 ML IV PUSH ×3 (06:19→22:18)
[2022-10-20] MEDS: THERAPEUTIC MULTIVITAMINS/MINERALS TAB (*BKC) 1 TABLET PO (09:20)
[2022-10-20] MEDS: MAGNESIUM OXIDE 200 MG TABLET PO (09:20)
[2022-10-20] MEDS: polyethylene glycoL 3350 17 GM POWD.PACK PO (09:20)
[2022-10-20] MEDS: POTASSIUM CHLORIDE 10 MEQ TABLET.ER PO (09:20)
[2022-10-20] MEDS: DULoxetine HCL 60 MG CAPSULE.DR PO (09:20)
[2022-10-20] MEDS: CYANOCOBALAMIN 1,000 MCG TABLET 1000 MCG PO (09:20)
[2022-10-20] MEDS: PANTOPRAZOLE SODIUM IV 40 MG VIAL IV PUSH ×2 (09:21→21:58)
[2022-10-20] MEDS: BACLOFEN 10 MG TABLET 20 MG PO ×3 (09:21→17:27)
[2022-10-20] MEDS: DOCUSATE SODIUM 100 MG CAPSULE PO ×2 (09:21→21:58)
[2022-10-20] MEDS: SODIUM CHLORIDE 0.9% IV 1,000 ML 100 ML IV CONT ×2 (09:22→21:52)
[2022-10-20] MEDS: ASCORBIC ACID 500 MG TABLET PO ×2 (09:22→21:58)
[2022-10-20 09:51] LABS: Basophils Percent Auto 0.2 % (0.2-1.2); Eosinophils Absolute Auto 0.3 K/mm3 (0-0.3); Eosinophils Percent Auto 2.4 % (0-4.4); Hematocrit 31.7 % (42.0-52.0); Hemoglobin 10.3 g/dL (14.0-18.0); Immature Granulocyte Absolute 0.04 K/mm3 (0.00-0.031); Immature Granulocyte Percent A 0.4 % (0-0.5); Lymphocytes Absolute Auto 0.92 K/mm3 (0.9-3.2); Lymphocytes Percent Auto 8.3 % (18.3-44.2); Mean Corpuscular HGB Conc 32.5 g/dl (32-36); Mean Corpuscular Hemoglobin 29.1 pg (26-34); Mean Corpuscular Volume 89.5 fl (80-100); Mean Platelet Volume 11.3 fl (7.4-10.4); Monocytes Absolute Auto 1.5 K/mm3 (0.1-0.6); Monocytes Percent Auto 13.1 % (2.6-8.5); Neutrophils Absolute Auto 8.4 K/mm3 (1.3-6.7); Neutrophils Percent Auto 75.6 % (45.5-73.1); Platelet Count Result 143 k/mm3 (150-375); Red Blood Count 3.54 M/mm3 (4.6-6.20); Red Cell Distribution Width 18.5 % (11.5-14.5); White Blood Count 11.1 K/mm3 (4.5-10.0)
[2022-10-20 09:55] LABS: Alanine Aminotransferase 17 U/L (6-50); Albumin Level 3.5 g/dL (3.5-5.1); Alkaline Phosphatase 84 U/L (38-126); Anion Gap 7 mmol/L (8-16); Aspartate Amino Transferase 36 U/L (17-59); Bilirubin,Total 0.5 mg/dL (0.2-1.3); Blood Urea Nitrogen 8 mg/dL (9-20); Calcium 8.1 mg/dL (8.4-10.2); Carbon Dioxide 23 mmol/L (22-30); Chloride 107 mmol/L (98-107); Estimated CRCL calculation 81 ml/min; Estimated Glomerular Filt Rate > 60; Glucose 81 mg/dL (65-110); Magnesium 1.7 mg/dL (1.6-2.3); Potassium 3.6 mmol/L (3.4-5.0); Sodium 137 mmol/L (137-145)
--- NOTE | 2022-10-20 15:40 | WPDGIPROGNO ---
Progress Note: A&P Assessment and Plan (1) Acute blood loss anemia: Code(s): D62 - Acute posthemorrhagic anemia Status: Acute Assessment and Plan: egd showed non-bleeding duodenal ulcer continue with iv protonix bid h/h stable after blood transfusion (2) Hematemesis: Code(s): K92.0 - Hematemesis Status: Acute Assessment and Plan: resolved (3) Duodenal ulcer: Code(s): K26.9 - Duodenal ulcer, unspecified as acute or chronic, without hemorrhage or perforation Status: Acute Assessment and Plan: new finding, no need of endoscopic intervention protonix (4) Quadriplegia: Code(s): G82.50 - Quadriplegia, unspecified Status: Acute (5) Urinary tract infection: Code(s): N39.0 - Urinary tract infection, site not specified Status: Acute (6) Pneumonia: Code(s): J18.9 - Pneumonia, unspecified organism Status: Acute Assessment and Plan: on antibiotics Subjective Date/time seen: 10/20/22 15:40 Interval history: no bleeding, hb better after blood tranfusion Review of Systems Review of Systems: All systems reviewed & are unremarkable except as noted in HPI and below Exam Const: General: no acute distress, awake and ill appearing Orientation/consciousness: oriented to person and oriented to place Other: History of quadriplegia HENMT: Head: normal to inspection, normocephalic and atraumatic Ears: hearing grossly normal bilaterally Eyes: General: appearance normal, both eyes and all related structures Neck: Neck: normal visual inspection, full ROM and supple Chest: Chest palpation & inspection: normal inspection of the chest Resp: Effort & Inspection: normal respiratory effort Auscultation: clear to auscultation bilaterally Cardio: Palpation: normal PMI Rhythm: regular rhythm Heart sounds: S1 normal heart sound present and S2 normal heart sound present GI: Inspection: normal to inspection GI Palp: Yes Soft to palpation and No Tenderness to palpation present (GI) Skin: General skin exam: normal color Wounds: no wounds Neuro: Cranial nerves: Yes Normal hearing present Other: The patient has a history of quadriplegia with chronic contractures. Extrem: Other: The patient is contracted Psych: Appearance: grossly normal Insight: Limited insight present (Psych) Judgement: Limited judgement present (Psych) Objective Data Vital Signs Vital Signs: Vital Signs - 24 hr 10/19/22 16:00 10/19/22 16:00 10/19/22 16:00 Temperature 98.7 F Pulse Rate 95 86 Respiratory Rate 18 Blood Pressure 144/58 H Pulse Oximetry 98 Oxygen Delivery Room Air 10/19/22 20:00 10/19/22 20:00 10/19/22 20:00 Temperature 97.6 F Pulse Rate 88 92 Respiratory Rate 18 Blood Pressure 97/44 L Pulse Oximetry 98 Oxygen Delivery Room Air 10/19/22 23:08 10/20/22 00:00 10/20/22 04:00 Temperature 99.1 F Pulse Rate 90 62 77 Respiratory Rate 14 Blood Pressure 142/62 H Pulse Oximetry 94 Oxygen Delivery 10/20/22 08:00 10/20/22 08:00 10/20/22 12:00 Temperature Pulse Rate 81 81 Respiratory Rate Blood Pressure Pulse Oximetry Oxygen Delivery Room Air Intake/Output Intake/Output: Intake & Output 10/17/22 10/18/22 10/19/22 10/20/22 23:59 23:59 23:59 23:59 Intake Total 3650 2400 2920 1600 Balance 3650 2400 2920 1600 Meds/Results Medications: Active Medications Generic Name Dose Route Start Last Admin Trade Name Freq PRN Reason Stop Dose Admin Acetaminophen 650 mg 10/17/22 23:21 Acetaminophen 325 Mg Tablet PO Q6H PRN Pain (Scale Score 1-3) Albuterol 2 puff 10/17/22 18:07 Albuterol Sulfate (*Sp) Aerosol 1 Puff INHALATION Q6HRT PRN Shortness Of Breath Ascorbic Acid 500 mg 10/17/22 23:40 10/20/22 09:22 Ascorbic Acid 500 Mg Tablet PO 500 mg Q12HR MOON Administration Baclofen 20 mg 10/17/22 23:40 10/20/22 09:21 B
--- NOTE | 2022-10-20 16:56 | PM.IMPN ---
Progress Note: A&P Assessment and Plan (1) Pneumonia: Code(s): J18.9 - Pneumonia, unspecified organism Status: Acute Assessment and Plan: Azithromycin and Rocephin -tailor antibiotics to culture P.r.n. 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 (3) Chronic pain: Code(s): G89.29 - Other chronic pain Status: Acute Assessment and Plan: The patient is quadriplegic and has chronic pain. -continue with his baclofen -continue with his Percocet Continue with duloxetine (4) Anemia: Code(s): D64.9 - Anemia, unspecified Status: Inactive Assessment and Plan: Patient has typed and cross-matched and transfuse as necessary. (5) Urinary tract infection: Code(s): N39.0 - Urinary tract infection, site not specified Status: Acute Assessment and Plan: -urine cultures are pending blood cultures are pending tailor antibiotics to cultures. -patient is on Rocephin. (6) Quadriplegia: Code(s): G82.50 - Quadriplegia, unspecified Status: Acute Assessment and Plan: -this is chronic. 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 Review of Systems Review of Systems: All systems reviewed & are unremarkable except as noted in HPI and below Exam Narrative: chronically ill Patient is comfortable, NAD HEENT: eyes are clear and none icteric LUNGS:CTA HEART: RR S1S2 ABD: BS+, Soft and nontender Lower extremities: no edema MS: upper and lower extreme contractures SKIN: nonjaundiced Neuro: grossly intact. Const: General: cooperative, comfortable, no acute distress, alert, awake, Physically active, ill appearing and average body habitus Objective Data Vital Signs Vital Signs: Vital Signs - 24 hr 10/19/22 20:00 10/19/22 20:00 10/19/22 20:00 Temperature 97.6 F Pulse Rate 88 92 Respiratory Rate 18 Blood Pressure 97/44 L Pulse Oximetry 98 Oxygen Delivery Room Air 10/19/22 23:08 10/20/22 00:00 10/20/22 04:00 Temperature 99.1 F Pulse Rate 90 62 77 Respiratory Rate 14 Blood Pressure 142/62 H Pulse Oximetry 94 Oxygen Delivery 10/20/22 08:00 10/20/22 08:00 10/20/22 12:00 Temperature Pulse Rate 81 81 Respiratory Rate Blood Pressure Pulse Oximetry Oxygen Delivery Room Air Intake/Output Intake/Output: Intake & Output 10/17/22 10/18/22 10/19/22 10/20/22 23:59 23:59 23:59 23:59 Intake Total 3650 2400 3170 1600 Balance 3650 2400
--- NOTE | 2022-10-20 17:01 | PM.IMPN ---
Progress Note: A&P Assessment and Plan (1) Pneumonia: Code(s): J18.9 - Pneumonia, unspecified organism Status: Acute Assessment and Plan: Azithromycin and Rocephin -tailor antibiotics to culture P.r.n. 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 was brought emergency depart upon arrival his hemoglobin was 5 point home patient received pack RBC there was improvement in his hemoglobin than his hemoglobin dropped and was seen by GI nurse taken to GI lab for EGD and patient was found to have duodenal ulcer however there is no acute bleeding, patient's hemoglobin remains stable, patient blood culture is growing Gram-positive cocci in clusters most of the bottle showing Staphylococcus hominis patient being treated ceftriaxone and vancomycin will follow-up on sensitivity patient denies any abdominal pain nausea or vomiting will continue to monitor. (3) Chronic pain: Code(s): G89.29 - Other chronic pain Status: Acute Assessment and Plan: The patient is quadriplegic and has chronic pain. -continue with his baclofen -continue with his Percocet Continue with duloxetine (4) Anemia: Code(s): D64.9 - Anemia, unspecified Status: Inactive Assessment and Plan: Patient has typed and cross-matched and transfuse as necessary. (5) Urinary tract infection: Code(s): N39.0 - Urinary tract infection, site not specified Status: Acute Assessment and Plan: -urine cultures are pending blood cultures are pending tailor antibiotics to cultures. -patient is on Rocephin. (6) Quadriplegia: Code(s): G82.50 - Quadriplegia, unspecified Status: Acute Assessment and Plan: -this is chronic. 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 was brought emergency depart upon arrival his hemoglobin was 5 point home patient received pack RBC there was improvement in his hemoglobin than his hemoglobin dropped and was seen by GI nurse taken to GI lab for EGD and patient was found to have duodenal ulcer however there is no acute bleeding, patient's hemoglobin remains stable, patient blood culture is growing Gram-positive cocci in clusters most of the bottle showing Staphylococcus hominis patient being treated ceftriaxone and vancomycin will follow-up on sensitivity patient denies any abdominal pain nausea or vomiting will continue to monitor. Review of Systems Review of Systems: All systems reviewed & are unremarkable except as noted in HPI and below Exam Narrative: chronically ill Patient is comfortable, NAD HEENT: eyes are clear and none icteric LUNGS:CTA HEART: RR S1S2 ABD: BS+, Soft and nontender Lower extremities: no edema MS: upper and lower extreme contractures SKIN: nonjaundiced Neuro: grossly intact. Objective Data Vital Signs Vital Signs: Vital Signs - 24 hr 10/19/22 20:00 10/19/22 20:00 10/19/22 20:00 Temperature 97.6 F Pulse Rate 88 92 Respiratory Rate 18 Blood Pressure 97/44 L Pulse Oximetry 98 Oxygen Delivery Room Air 10/19/22 23:08 10/20/22 00:00 10/20/22 04:00 Temperature 99.1 F Pulse Rate 90 62 77 Respiratory Rate 14 Blood Pressure 142/62 H Pulse Oximetry 94 Oxygen Delivery 10/20/22 08:00 10/20/22 08:00 10/20/22 12:00 Temperature Pulse Rate 81 81 Respiratory Rate Blood Pressure Pulse Oximetry Oxygen Delivery Room Air Intake/Output Intake/Output: Intake & Output 10/17/22 10/18/22 10/19/22 10/20/22 23:59 23:59 23:59 23:59 Intake Total 3650 2400 3170 1600 Balance 3650 2400 3170 1600 M
[2022-10-20] MEDS: oxyCODONE/ACETAMINOPHEN (*CRX) 5-325 MG TABLET 1 TABLET PO (19:56)
[2022-10-20] MEDS: oxyCODONE HCL (*CRX) 2.5 MG TAB IR PO (19:57)
[2022-10-21] VITALS (9 sets, daily range): BP systolic 95–119; BP diastolic 54–64; PULSE 68–80; RESP 15–20; TEMP 36.2–36.8; O2SAT 97–98
[2022-10-21 06:24] LABS: Alanine Aminotransferase 16 U/L (6-50); Albumin Level 3.1 g/dL (3.5-5.1); Alkaline Phosphatase 78 U/L (38-126); Anion Gap 3 mmol/L (8-16); Aspartate Amino Transferase 33 U/L (17-59); Bilirubin,Total 0.4 mg/dL (0.2-1.3); Blood Urea Nitrogen 8 mg/dL (9-20); Calcium 7.9 mg/dL (8.4-10.2); Carbon Dioxide 27 mmol/L (22-30); Chloride 106 mmol/L (98-107); Estimated CRCL calculation 81 ml/min; Estimated Glomerular Filt Rate > 60; Glucose 91 mg/dL (65-110); Magnesium 1.7 mg/dL (1.6-2.3); Potassium 3.7 mmol/L (3.4-5.0); Sodium 136 mmol/L (137-145)
[2022-10-21] MEDS: CYANOCOBALAMIN 1,000 MCG TABLET 1000 MCG PO (08:50)
[2022-10-21] MEDS: MAGNESIUM OXIDE 200 MG TABLET PO (08:50)
[2022-10-21] MEDS: DULoxetine HCL 60 MG CAPSULE.DR PO (08:50)
[2022-10-21] MEDS: BACLOFEN 10 MG TABLET 20 MG PO ×3 (08:50→17:15)
[2022-10-21] MEDS: DOCUSATE SODIUM 100 MG CAPSULE PO ×2 (08:50→21:39)
[2022-10-21] MEDS: PANTOPRAZOLE SODIUM IV 40 MG VIAL IV PUSH ×2 (08:50→21:39)
[2022-10-21] MEDS: THERAPEUTIC MULTIVITAMINS/MINERALS TAB (*BKC) 1 TABLET PO (08:51)
[2022-10-21] MEDS: POTASSIUM CHLORIDE 10 MEQ TABLET.ER PO (08:51)
[2022-10-21] MEDS: oxyCODONE/ACETAMINOPHEN (*CRX) 5-325 MG TABLET 1 TABLET PO ×2 (08:51→18:19)
[2022-10-21] MEDS: ASCORBIC ACID 500 MG TABLET PO ×2 (08:51→21:39)
--- NOTE | 2022-10-21 10:39 | WPDGIPROGNO ---
Progress Note: A&P Assessment and Plan (1) Duodenal ulcer: Code(s): K26.9 - Duodenal ulcer, unspecified as acute or chronic, without hemorrhage or perforation Status: Acute Assessment and Plan: new finding. it was not longer bleeding and did not require endoscopic intervention protonix he is eating [place], call if questions (2) Acute blood loss anemia: Code(s): D62 - Acute posthemorrhagic anemia Status: Acute Assessment and Plan: egd showed non-bleeding duodenal ulcer continue with iv protonix bid h/h stable after blood transfusion (3) Hematemesis: Code(s): K92.0 - Hematemesis Status: Acute Assessment and Plan: resolved (4) Bacteremia due to Staphylococcus: Code(s): R78.81 - Bacteremia; B95.8 - Unspecified staphylococcus as the cause of diseases classified elsewhere Status: Acute Assessment and Plan: on antibiotics by primary team (5) Pneumonia: Code(s): J18.9 - Pneumonia, unspecified organism Status: Acute Assessment and Plan: on antibiotics (6) Quadriplegia: Code(s): G82.50 - Quadriplegia, unspecified Status: Acute (7) Urinary tract infection: Code(s): N39.0 - Urinary tract infection, site not specified Status: Acute Subjective Date/time seen: 10/21/22 10:39 Interval history: no more bleeding, he is eating Review of Systems Review of Systems: All systems reviewed & are unremarkable except as noted in HPI and below Exam Const: General: no acute distress, awake and ill appearing Orientation/consciousness: oriented to person and oriented to place Other: History of quadriplegia HENMT: Head: normal to inspection, normocephalic and atraumatic Ears: hearing grossly normal bilaterally Eyes: General: appearance normal, both eyes and all related structures Neck: Neck: normal visual inspection, full ROM and supple Chest: Chest palpation & inspection: normal inspection of the chest Resp: Effort & Inspection: normal respiratory effort Auscultation: clear to auscultation bilaterally Cardio: Palpation: normal PMI Rhythm: regular rhythm Heart sounds: S1 normal heart sound present and S2 normal heart sound present GI: Inspection: normal to inspection GI Palp: Yes Soft to palpation and No Tenderness to palpation present (GI) Skin: General skin exam: normal color Neuro: Cranial nerves: Yes Normal hearing present Other: The patient has a history of quadriplegia with chronic contractures. Extrem: Other: The patient is contracted Psych: Appearance: grossly normal Insight: Limited insight present (Psych) Judgement: Limited judgement present (Psych) Objective Data Vital Signs Vital Signs: Vital Signs - 24 hr 10/20/22 12:00 10/20/22 12:00 10/20/22 16:00 Temperature Pulse Rate 81 91 85 Respiratory Rate Blood Pressure Pulse Oximetry 10/20/22 14:00 10/20/22 20:55 10/20/22 22:00 Temperature 98.6 F 97.8 F Pulse Rate 101 H 86 75 Respiratory Rate 30 H 16 Blood Pressure 169/77 H 130/63 Pulse Oximetry 97 100 10/21/22 00:00 10/21/22 04:00 10/21/22 06:00 Temperature 97.4 F L Pulse Rate 77 79 73 Respiratory Rate 16 Blood Pressure 97/54 L Pulse Oximetry 98 Intake/Output Intake/Output: Intake & Output 10/18/22 10/19/22 10/20/22 10/21/22 23:59 23:59 23:59 23:59 Intake Total 2400 3170 3630 710 Balance 2400 3170 3630 710 Meds/Results Medications: Active Medications Generic Name Dose Route Start Last Admin Trade Name Freq PRN Reason Stop Dose Admin Acetaminophen 650 mg 10/17/22 23:21 Acetaminophen 325 Mg Tablet PO Q6H PRN Pain (Scale Score 1-3) Albuterol 2 puff 10/17/22 18:07 Albuterol Sulfate (*Sp) Aerosol 1 Puff INHALATION Q6HRT PRN Shortness Of Breath Ascorbic Acid 500 mg 10/17/22 23:40 10/21/22 08:51 Ascorbic Acid 500 Mg Tablet PO 500 mg Q12HR MOON Administrat
[2022-10-21] MEDS: CENTRAL LINE FLUSH 10 ML IV PUSH ×2 (12:46→21:39)
--- NOTE | 2022-10-21 13:38 | PC.NURSE ---
pt's son called wanting an update. I answered his questions. He stated that either he or his mother would be up later to visit pt.
--- NOTE | 2022-10-21 15:44 | PM.IMPN ---
Progress Note: A&P Assessment and Plan (1) Pneumonia: Code(s): J18.9 - Pneumonia, unspecified organism Status: Acute Assessment and Plan: Azithromycin and Rocephin -tailor antibiotics to culture P.r.n. 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 was brought emergency depart upon arrival his hemoglobin was 5 point home patient received pack RBC there was improvement in his hemoglobin than his hemoglobin dropped and was seen by GI nurse taken to GI lab for EGD and patient was found to have duodenal ulcer however there is no acute bleeding, patient's hemoglobin remains stable, patient blood culture is growing Staphylococcus hominis not MRSA,patient being treated ceftriaxone and vancomycin, will start the ceftriaxone and vancomycin will start the patient on doxycycline, repeat the blood culture, patient denies any abdominal pain nausea or vomiting will continue to monitor. (3) Chronic pain: Code(s): G89.29 - Other chronic pain Status: Acute Assessment and Plan: The patient is quadriplegic and has chronic pain. -continue with his baclofen -continue with his Percocet Continue with duloxetine (4) Anemia: Code(s): D64.9 - Anemia, unspecified Status: Inactive Assessment and Plan: Patient has typed and cross-matched and transfuse as necessary. (5) Urinary tract infection: Code(s): N39.0 - Urinary tract infection, site not specified Status: Acute Assessment and Plan: -urine cultures are pending blood cultures are pending tailor antibiotics to cultures. -patient is on Rocephin. (6) Quadriplegia: Code(s): G82.50 - Quadriplegia, unspecified Status: Acute Assessment and Plan: -this is chronic. 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 was brought emergency depart upon arrival his hemoglobin was 5 point home patient received pack RBC there was improvement in his hemoglobin than his hemoglobin dropped and was seen by GI nurse taken to GI lab for EGD and patient was found to have duodenal ulcer however there is no acute bleeding, patient's hemoglobin remains stable, patient blood culture is growing Staphylococcus hominis not MRSA,patient being treated ceftriaxone and vancomycin, will start the ceftriaxone and vancomycin will start the patient on doxycycline, repeat the blood culture, patient denies any abdominal pain nausea or vomiting will continue to monitor. Review of Systems Review of Systems: All systems reviewed & are unremarkable except as noted in HPI and below Exam Narrative: chronically ill Patient is comfortable, NAD HEENT: eyes are clear and none icteric LUNGS:CTA HEART: RR S1S2 ABD: BS+, Soft and nontender Lower extremities: no edema MS: upper and lower extreme contractures SKIN: nonjaundiced Neuro: grossly intact. Objective Data Vital Signs Vital Signs: Vital Signs - 24 hr 10/20/22 16:00 10/20/22 20:55 10/20/22 22:00 Temperature 97.8 F Pulse Rate 85 86 75 Respiratory Rate 16 Blood Pressure 130/63 Pulse Oximetry 100 Oxygen Delivery 10/21/22 00:00 10/21/22 04:00 10/21/22 06:00 Temperature 97.4 F L Pulse Rate 77 79 73 Respiratory Rate 16 Blood Pressure 97/54 L Pulse Oximetry 98 Oxygen Delivery 10/21/22 08:00 10/21/22 08:00 10/21/22 12:00 Temperature Pulse Rate 71 78 Respiratory Rate Blood Pressure Pulse Oximetry Oxygen Delivery Room Air Intake/Output Intake/Output: Intake & Output 10/18/22 10/19/22 10/20/22 10/21/22 23:59 23:59 23:59 23:59 Intake Total 2400 4972 3630 1
[2022-10-21] MEDS: DOXYCYCLINE 100 MG/NS 100 ML 100 MG/100 ML BAG IVPB (17:15)
[2022-10-21] MEDS: SODIUM CHLORIDE 0.9% IV 1,000 ML 100 ML IV CONT (21:43)
[2022-10-21] MEDS: MELATONIN 3 MG TABLET PO (21:44)
[2022-10-22] VITALS (11 sets, daily range): BP systolic 104–148; BP diastolic 53–91; PULSE 66–83; RESP 14–20; TEMP 36.5–36.9; O2SAT 87–100
[2022-10-22] MEDS: oxyCODONE/ACETAMINOPHEN (*CRX) 5-325 MG TABLET 1 TABLET PO (00:35)
[2022-10-22] MEDS: oxyCODONE HCL (*CRX) 2.5 MG TAB IR PO (00:35)
[2022-10-22] MEDS: CENTRAL LINE FLUSH 10 ML IV PUSH ×3 (06:18→21:14)
[2022-10-22] MEDS: DOXYCYCLINE 100 MG/NS 100 ML 100 MG/100 ML BAG IVPB ×2 (06:29→17:46)
[2022-10-22 06:54] LABS: Alanine Aminotransferase 15 U/L (6-50); Albumin Level 2.9 g/dL (3.5-5.1); Alkaline Phosphatase 70 U/L (38-126); Anion Gap 2 mmol/L (8-16); Aspartate Amino Transferase 30 U/L (17-59); Bilirubin,Total 0.4 mg/dL (0.2-1.3); Blood Urea Nitrogen 9 mg/dL (9-20); Calcium 7.6 mg/dL (8.4-10.2); Carbon Dioxide 27 mmol/L (22-30); Chloride 108 mmol/L (98-107); Estimated CRCL calculation 81 ml/min; Estimated Glomerular Filt Rate > 60; Glucose 92 mg/dL (65-110); Magnesium 1.7 mg/dL (1.6-2.3); Potassium 3.8 mmol/L (3.4-5.0); Sodium 137 mmol/L (137-145)
[2022-10-22] MEDS: MAGNESIUM OXIDE 200 MG TABLET PO (08:44)
[2022-10-22] MEDS: ASCORBIC ACID 500 MG TABLET PO ×2 (08:44→21:13)
[2022-10-22] MEDS: CYANOCOBALAMIN 1,000 MCG TABLET 1000 MCG PO (08:44)
[2022-10-22] MEDS: THERAPEUTIC MULTIVITAMINS/MINERALS TAB (*BKC) 1 TABLET PO (08:44)
[2022-10-22] MEDS: DOCUSATE SODIUM 100 MG CAPSULE PO ×2 (08:44→21:13)
[2022-10-22] MEDS: DULoxetine HCL 60 MG CAPSULE.DR PO (08:44)
[2022-10-22] MEDS: BACLOFEN 10 MG TABLET 20 MG PO ×3 (08:44→17:44)
[2022-10-22] MEDS: POTASSIUM CHLORIDE 10 MEQ TABLET.ER PO (08:44)
[2022-10-22] MEDS: PANTOPRAZOLE SODIUM IV 40 MG VIAL IV PUSH ×2 (08:45→21:13)
[2022-10-22] MEDS: SODIUM CHLORIDE 0.9% IV 1,000 ML 100 ML IV CONT ×2 (09:45→21:07)
[2022-10-22] MEDS: CENTRAL LINE FLUSH 20 ML IV PUSH (12:10)
[2022-10-22 12:12] LABS: Hematocrit 30.7 % (42.0-52.0); Hemoglobin 9.8 g/dL (14.0-18.0); Mean Corpuscular HGB Conc 31.9 g/dl (32-36); Mean Corpuscular Hemoglobin 28.7 pg (26-34); Platelet Count Result 209 k/mm3 (150-375); Red Blood Count 3.41 M/mm3 (4.6-6.20); Red Cell Distribution Width 18.2 % (11.5-14.5); White Blood Count 6.9 K/mm3 (4.5-10.0)
--- NOTE | 2022-10-22 13:41 | PM.IMPN ---
Progress Note: A&P Assessment and Plan (1) Pneumonia: Code(s): J18.9 - Pneumonia, unspecified organism Status: Acute Assessment and Plan: Azithromycin and Rocephin -tailor antibiotics to culture P.r.n. 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 was brought emergency depart upon arrival his hemoglobin was 5 point home patient received pack RBC there was improvement in his hemoglobin than his hemoglobin dropped and was seen by GI nurse taken to GI lab for EGD and patient was found to have duodenal ulcer however there is no acute bleeding, patient's hemoglobin remains stable, patient blood culture is growing Staphylococcus hominis not MRSA,patient had being treated ceftriaxone and vancomycin, on 10/21 stopped the ceftriaxone and vancomycin and started the patient on doxycycline, repeat the blood culture, will discuss with ID pharmacist and further recommendation to follow, patient denies any abdominal pain nausea or vomiting will continue to monitor. (3) Chronic pain: Code(s): G89.29 - Other chronic pain Status: Acute Assessment and Plan: The patient is quadriplegic and has chronic pain. -continue with his baclofen -continue with his Percocet Continue with duloxetine (4) Anemia: Code(s): D64.9 - Anemia, unspecified Status: Inactive Assessment and Plan: Patient has typed and cross-matched and transfuse as necessary. (5) Urinary tract infection: Code(s): N39.0 - Urinary tract infection, site not specified Status: Acute Assessment and Plan: -urine cultures are pending blood cultures are pending tailor antibiotics to cultures. -patient is on Rocephin. (6) Quadriplegia: Code(s): G82.50 - Quadriplegia, unspecified Status: Acute Assessment and Plan: -this is chronic. 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 was brought emergency depart upon arrival his hemoglobin was 5 point home patient received pack RBC there was improvement in his hemoglobin than his hemoglobin dropped and was seen by GI nurse taken to GI lab for EGD and patient was found to have duodenal ulcer however there is no acute bleeding, patient's hemoglobin remains stable, patient blood culture is growing Staphylococcus hominis not MRSA,patient had being treated ceftriaxone and vancomycin, on 10/21 stopped the ceftriaxone and vancomycin and started the patient on doxycycline, repeat the blood culture, will discuss with ID pharmacist and further recommendation to follow, patient denies any abdominal pain nausea or vomiting will continue to monitor. Review of Systems Review of Systems: All systems reviewed & are unremarkable except as noted in HPI and below Exam Narrative: chronically ill Patient is comfortable, NAD HEENT: eyes are clear and none icteric LUNGS:CTA HEART: RR S1S2 ABD: BS+, Soft and nontender Lower extremities: no edema MS: upper and lower extreme contractures SKIN: nonjaundiced Neuro: grossly intact. Objective Data Vital Signs Vital Signs: Vital Signs - 24 hr 10/21/22 16:00 10/21/22 14:00 10/21/22 22:00 Temperature 97.1 F L 98.2 F Pulse Rate 72 68 72 Respiratory Rate 15 20 Blood Pressure 95/60 L 119/64 Pulse Oximetry 98 97 Oxygen Delivery 10/21/22 20:00 10/21/22 20:00 10/22/22 00:00 Temperature Pulse Rate 72 80 82 Respiratory Rate 20 Blood Pressure Pulse Oximetry 97 Oxygen Delivery Room Air 10/22/22 05:45 10/22/22 04:00 10/22/22 08:45 Temperature 97.7 F Pulse Rate 66 83 Respiratory Rate 16 Blood Pressure 139/65
[2022-10-23] VITALS (8 sets, daily range): BP systolic 120–148; BP diastolic 61–77; PULSE 61–125; RESP 12–16; TEMP 36.4–36.9; O2SAT 99–100
[2022-10-23] MEDS: DOXYCYCLINE 100 MG/NS 100 ML 100 MG/100 ML BAG IVPB ×2 (05:18→16:56)
[2022-10-23] MEDS: CENTRAL LINE FLUSH 10 ML IV PUSH ×2 (05:20→12:54)
[2022-10-23 05:40] LABS: Hemoglobin 10.3 g/dL (14.0-18.0); Mean Corpuscular HGB Conc 32.2 g/dl (32-36); Mean Corpuscular Hemoglobin 28.3 pg (26-34); Mean Corpuscular Volume 87.9 fl (80-100); Mean Platelet Volume 10.9 fl (7.4-10.4); Platelet Count Result 241 k/mm3 (150-375); Red Blood Count 3.64 M/mm3 (4.6-6.20); Red Cell Distribution Width 17.8 % (11.5-14.5); White Blood Count 7.6 K/mm3 (4.5-10.0)
[2022-10-23 05:55] LABS: Alanine Aminotransferase 16 U/L (6-50); Albumin Level 3.3 g/dL (3.5-5.1); Alkaline Phosphatase 88 U/L (38-126); Anion Gap 2 mmol/L (8-16); Aspartate Amino Transferase 28 U/L (17-59); Bilirubin,Total 0.4 mg/dL (0.2-1.3); Blood Urea Nitrogen 7 mg/dL (9-20); Calcium 8.3 mg/dL (8.4-10.2); Carbon Dioxide 29 mmol/L (22-30); Chloride 107 mmol/L (98-107); Estimated CRCL calculation 81 ml/min; Estimated Glomerular Filt Rate > 60; Glucose 89 mg/dL (65-110); Magnesium 1.6 mg/dL (1.6-2.3); Potassium 3.4 mmol/L (3.4-5.0); Sodium 138 mmol/L (137-145)
[2022-10-23] MEDS: ASCORBIC ACID 500 MG TABLET PO ×2 (10:17→20:30)
[2022-10-23] MEDS: BACLOFEN 10 MG TABLET 20 MG PO ×3 (10:17→16:56)
[2022-10-23] MEDS: PANTOPRAZOLE SODIUM IV 40 MG VIAL IV PUSH ×2 (10:17→20:30)
[2022-10-23] MEDS: BENZONATATE 100 MG CAPSULE 200 MG PO (10:17)
[2022-10-23] MEDS: MAGNESIUM OXIDE 200 MG TABLET PO (10:18)
[2022-10-23] MEDS: POTASSIUM CHLORIDE 10 MEQ TABLET.ER PO (10:18)
[2022-10-23] MEDS: CYANOCOBALAMIN 1,000 MCG TABLET 1000 MCG PO (10:18)
[2022-10-23] MEDS: DULoxetine HCL 60 MG CAPSULE.DR PO (10:18)
[2022-10-23] MEDS: SODIUM CHLORIDE 0.9% IV 1,000 ML 100 ML IV CONT (10:18)
[2022-10-23] MEDS: THERAPEUTIC MULTIVITAMINS/MINERALS TAB (*BKC) 1 TABLET PO (10:18)
--- NOTE | 2022-10-23 13:21 | PM.IMPN ---
Progress Note: A&P Assessment and Plan (1) Pneumonia: Code(s): J18.9 - Pneumonia, unspecified organism Status: Acute Assessment and Plan: Azithromycin and Rocephin -tailor antibiotics to culture P.r.n. 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 was brought emergency depart upon arrival his hemoglobin was 5.4 patient received pack RBC there was improvement in his hemoglobin than his hemoglobin dropped to 6.7 and was seen by GI nurse taken to GI lab for EGD and patient was found to have duodenal ulcer however there is no acute bleeding, patient's hemoglobin remains stable today it is 10.3, patient blood culture is growing Staphylococcus hominis not MRSA,patient had being treated ceftriaxone and vancomycin, on 10/21 stopped the ceftriaxone and vancomycin and started the patient on doxycycline, repeat the blood culture, repeat blood culture no growth so far will discuss with ID pharmacist and further recommendation to follow, patient denies any abdominal pain nausea or vomiting will continue to monitor. (3) Chronic pain: Code(s): G89.29 - Other chronic pain Status: Acute Assessment and Plan: The patient is quadriplegic and has chronic pain. -continue with his baclofen -continue with his Percocet Continue with duloxetine (4) Anemia: Code(s): D64.9 - Anemia, unspecified Status: Inactive Assessment and Plan: Patient has typed and cross-matched and transfuse as necessary. (5) Urinary tract infection: Code(s): N39.0 - Urinary tract infection, site not specified Status: Acute Assessment and Plan: -urine cultures are pending blood cultures are pending tailor antibiotics to cultures. -patient is on Rocephin. (6) Quadriplegia: Code(s): G82.50 - Quadriplegia, unspecified Status: Acute Assessment and Plan: -this is chronic. 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 was brought emergency depart upon arrival his hemoglobin was 5.4 patient received pack RBC there was improvement in his hemoglobin than his hemoglobin dropped to 6.7 and was seen by GI nurse taken to GI lab for EGD and patient was found to have duodenal ulcer however there is no acute bleeding, patient's hemoglobin remains stable today it is 10.3, patient blood culture is growing Staphylococcus hominis not MRSA,patient had being treated ceftriaxone and vancomycin, on 10/21 stopped the ceftriaxone and vancomycin and started the patient on doxycycline, repeat the blood culture, repeat blood culture no growth so far will discuss with ID pharmacist and further recommendation to follow, patient denies any abdominal pain nausea or vomiting will continue to monitor. Review of Systems Review of Systems: All systems reviewed & are unremarkable except as noted in HPI and below Exam Narrative: chronically ill Patient is comfortable, NAD HEENT: eyes are clear and none icteric LUNGS:CTA HEART: RR S1S2 ABD: BS+, Soft and nontender Lower extremities: no edema MS: upper and lower extreme contractures SKIN: nonjaundiced Neuro: grossly intact. Objective Data Vital Signs Vital Signs: Vital Signs - 24 hr 10/22/22 14:00 10/22/22 18:42 10/22/22 18:43 Temperature 98.5 F Pulse Rate 73 Respiratory Rate 20 Blood Pressure 148/91 H Pulse Oximetry 100 87 L 91 Oxygen Delivery Room Air Nasal Cannula Oxygen Flow Rate 1 10/22/22 16:00 10/22/22 21:10 10/22/22 20:00 Temperature 97.7 F Pulse Rate 76 74 76 Respiratory Rate 14 Blood Pressure 104/53 L Pulse Oximetry 100 Oxygen Delivery
[2022-10-24] VITALS: PULSE 70
[2022-10-24] MEDS: SODIUM CHLORIDE 0.9% IV 1,000 ML 100 ML IV CONT ×2 (00:39→12:01)
[2022-10-24] MEDS: CENTRAL LINE FLUSH 10 ML IV PUSH ×3 (00:42→14:24)
[2022-10-24 04:00] VITALS: PULSE 69
[2022-10-24] MEDS: DOXYCYCLINE 100 MG/NS 100 ML 100 MG/100 ML BAG IVPB ×2 (05:06→16:24)
[2022-10-24 05:14] VITALS: BP 156/82; PULSE 50; RESP 16; TEMP 37.2; O2SAT 99
[2022-10-24 05:38] LABS: Hematocrit 32.4 % (42.0-52.0); Mean Corpuscular HGB Conc 30.9 g/dl (32-36); Mean Corpuscular Hemoglobin 27.9 pg (26-34); Mean Corpuscular Volume 90.3 fl (80-100); Mean Platelet Volume 11.2 fl (7.4-10.4); Platelet Count Result 258 k/mm3 (150-375); Red Blood Count 3.59 M/mm3 (4.6-6.20); Red Cell Distribution Width 17.4 % (11.5-14.5); White Blood Count 9.1 K/mm3 (4.5-10.0)
[2022-10-24 05:46] LABS: Alanine Aminotransferase 15 U/L (6-50); Albumin Level 3.3 g/dL (3.5-5.1); Alkaline Phosphatase 83 U/L (38-126); Anion Gap 3 mmol/L (8-16); Aspartate Amino Transferase 25 U/L (17-59); Bilirubin,Total 0.3 mg/dL (0.2-1.3); Blood Urea Nitrogen 7 mg/dL (9-20); Calcium 8.3 mg/dL (8.4-10.2); Carbon Dioxide 28 mmol/L (22-30); Chloride 104 mmol/L (98-107); Estimated CRCL calculation 81 ml/min; Estimated Glomerular Filt Rate > 60; Glucose 81 mg/dL (65-110); Magnesium 1.6 mg/dL (1.6-2.3); Potassium 3.3 mmol/L (3.4-5.0); Sodium 135 mmol/L (137-145)
[2022-10-24 08:00] VITALS: PULSE 67
[2022-10-24] MEDS: CYANOCOBALAMIN 1,000 MCG TABLET 1000 MCG PO (08:36)
[2022-10-24] MEDS: BACLOFEN 10 MG TABLET 20 MG PO ×3 (08:36→16:24)
[2022-10-24] MEDS: DULoxetine HCL 60 MG CAPSULE.DR PO (08:36)
[2022-10-24] MEDS: ASCORBIC ACID 500 MG TABLET PO (08:36)
[2022-10-24] MEDS: POTASSIUM CHLORIDE 20 MEQ PACKET (FOR LIQUID) 40 MEQ PO (08:36)
[2022-10-24] MEDS: THERAPEUTIC MULTIVITAMINS/MINERALS TAB (*BKC) 1 TABLET PO (08:36)
[2022-10-24] MEDS: POTASSIUM CHLORIDE 10 MEQ TABLET.ER PO (08:36)
[2022-10-24] MEDS: MAGNESIUM OXIDE 200 MG TABLET PO (08:36)
[2022-10-24] MEDS: PANTOPRAZOLE SODIUM IV 40 MG VIAL IV PUSH (08:37)
[2022-10-24 12:00] VITALS: PULSE 82
[2022-10-24 12:47] LABS: EDCOVIDSCREEN Negative (Negative)
[2022-10-24 14:00] VITALS: BP 153/74; PULSE 82; RESP 18; TEMP 36.7; O2SAT 98
--- NOTE | 2022-10-24 14:58 | PM.DS ---
DS: Admitting Diagnosis Discharge Date 10/24/2022 Admitting Diagnosis Nausea vomiting diarrhea DS: Discharge Diagnosis Discharge Diagnosis (1) Pneumonia: Code(s): J18.9 - Pneumonia, unspecified organism Status: Acute Assessment and Plan: Azithromycin and Rocephin -tailor antibiotics to culture P.r.n. 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 was brought emergency depart upon arrival his hemoglobin was 5.4 patient received pack RBC there was improvement in his hemoglobin than his hemoglobin dropped to 6.7 and was seen by GI nurse taken to GI lab for EGD and patient was found to have duodenal ulcer however there is no acute bleeding, patient's hemoglobin remains stable today it is 10.3, patient blood culture is growing Staphylococcus hominis not MRSA,patient had being treated ceftriaxone and vancomycin, on 10/21 stopped the ceftriaxone and vancomycin and started the patient on doxycycline, repeat the blood culture, repeat blood culture no growth so far will discuss with ID pharmacist and further recommendation to follow, patient denies any abdominal pain nausea or vomiting will continue to monitor. (3) Chronic pain: Code(s): G89.29 - Other chronic pain Status: Acute Assessment and Plan: The patient is quadriplegic and has chronic pain. -continue with his baclofen -continue with his Percocet Continue with duloxetine (4) Anemia: Code(s): D64.9 - Anemia, unspecified Status: Inactive Assessment and Plan: Patient has typed and cross-matched and transfuse as necessary. (5) Urinary tract infection: Code(s): N39.0 - Urinary tract infection, site not specified Status: Acute Assessment and Plan: -urine cultures are pending blood cultures are pending tailor antibiotics to cultures. -patient is on Rocephin. (6) Quadriplegia: Code(s): G82.50 - Quadriplegia, unspecified Status: Acute Assessment and Plan: -this is chronic. DS: Summary Hospital Course Reason for hospitalization: Nausea vomiting diarrhea Narrative: This is a 82-year-old male patient who is quadriplegic.? The patient is quadriplegic due to a incomplete cervical spine injury.? The patient resides at a facility and he was brought to the emergency room for evaluation of nausea vomiting abdominal pain.? The patient had dark emesis today and also he had a bloody stools.? He has had several episodes of diarrhea today.? He denied any fever chills.? The patient is from [facility]? rehab facility.? Patient's abdominal pelvis CT was read as the followinglateral lower lobe infiltrate and/atelectasis, greater on the right Cardiomegaly Probable small right hepatic cyst Bilateral renal cysts Variable left renal enhancement which suggests possible pyelonephritis Diffuse thickening and urinary bladder wall which may be due to prostatomegaly or cystitis 2. Subtle calcifications are suggested at the posterolateral aspect of the urinary bladder on the right, possibly small calcifications of the wall or small calculi within the bladder lumen; consider prone or left lateral decubitus CT images of the bladder to differentiate these possibilities Prominent of fecal material within the rectum and colon; no bowel obstruction or free air Chest x-ray was read as the following?Left internal jugular central venous catheter tip at the cephalad superior vena cava. 2. No acute cardiopulmonary disease. The patient is quadriplegic and therefore a IJ was placed due to inability to place an IV.? Patient's H&H dropped down to 5.4 and 17.2.? Previously his H&H was 11.8 and 36.0 on 10/03/2022.? The patient's blood transfusion has already been start
[2022-10-24] MEDS: NEOMYCIN/POLYMYXIN/BACITRACIN OINTMENT PACKET 1 PACKET (16:24)
== END 2022-10-24 19:00 | DRG 377 ==
LOC: ANHED 13:29 → ANHIMU 10-18 08:06 → ANH3MEDSUR 10-23 18:02 → ANHIMU 10-25 12:10
PROVIDERS: Internal Medicine Gastroenterology; Nurse Practitioner; Admitting Provider Internal Medicine; Emergency Provider Emergency Medicine; PCP Internal Medicine; Visit Provider Family Medicine
PROC: 0DJ08ZZ Inspection of Upper Intestinal Tract, Via Natural or Artificial Opening Endoscopic (ICD-10-PCS; CPT 43235; principal; 2022-10-18 15:30)
DX: K26.0 Acute duodenal ulcer with hemorrhage (principal); G82.50 Quadriplegia, unspecified; J18.9 Pneumonia, unspecified organism; R78.81 Bacteremia; D62 Acute posthemorrhagic anemia; N39.0 Urinary tract infection, site not specified; K92.0 Hematemesis; B95.7 Other staphylococcus as the cause of diseases classified elsewhere; G89.29 Other chronic pain; Z20.822 Contact with and (suspected) exposure to COVID-19; F20.9 Schizophrenia, unspecified; N28.1 Cyst of kidney, acquired; Z87.891 Personal history of nicotine dependence
CPT/HCPCS: 36415; 36430; 36556; 71045; 74177; 80053; 82140; 82948; 83605; 83690; 83735; 84439; 84443; 84480; 84484; 85014; 85018; 85025; 85027; 85055; 85610; 85730; 86850; 86900; 86901; 86923; 87040; 87077; 87081; 87186; 87426; 87493; 87637; 88305; 93005; 96361; 96374; 96375; 96376; 99285; A9270; C1751; C9113; C9803; J0456; J0696; J2405; J2704; J3370; J7030; J7050; J7060; J7120; P9016; Q9967

== ENCOUNTER 2023-08-09 17:13 | Inpatient (IN) | payer MEDICARE, SELFPAY ==
[2023-08-09] VITALS (36 sets, daily range): BP systolic 138–167; BP diastolic 83–97; PULSE 83–91; RESP 12–14; TEMP 36.9; O2SAT 92–99
--- NOTE | ~2023-08-09 | XR_ITS ---
EXAMINATION: XR enema water soluble DATE: 08/10/2023 14:43 INDICATION: Large bowel obstruction. TECHNIQUE: A student success coach radiograph was obtained. A catheter was inserted into the patient's rectum. Contra st was infused by gravity. Fluoroscopic spot images and conventional radiographs were obtained. Fluor oscopy exposure time was 0.4 minutes. The total number of images was 23. COMPARISON: CT abdomen and pelvis 08/09/2023 FINDINGS: There is distention of the distal colon. No stricture. There is a moderate volume of stool in the colon. IMPRESSION: 1. Distention of the distal colon, consistent with adynamic ileus. No stricture. Reviewed, dictated and finalized at location A. IMPRESSION: 1. Distention of the distal colon, consistent with adynamic ileus. No stricture .
--- NOTE | ~2023-08-09 | XR_ITS ---
EXAMINATION: CT abdomen pelvis wo con, XR abdomen/kub 1V DATE: 08/09/2023 20:23 (accession [id number]), 08/09/2023 20:26 (accession [id number]) INDICATION: Constipation TECHNIQUE: Computed tomography (CT) of the abdomen and pelvis was performed without intravenous contr ast. The dose-length product was 1323.03 mGy-cm. Automated exposure control and iterative reconstruct ion technique were employed. KUB. COMPARISON: CT dated 10/17/2022 FINDINGS: There is rounded atelectasis of the right lower lobe. There is left basilar dependent atele ctasis. Heart size normal. No significant pleural or pericardial effusion. Calcified granuloma of the liver. The spleen, pancreas, adrenal glands are unremarkable. The kidneys are atrophic. There is a r ight renal cyst. There is gas throughout the small bowel and colon. There is focal thickening of the sigmoid colon with retained fecal material in the distal colon. Bladder wall is thickened. No free ai r. No free fluid. No abscess. No significant vascular abnormality. There is developmental distortion of the pelvis. There is moderate multilevel spondylosis of the spine. KUB: Large amount of retained bowel gas in the small bowel and colon as seen on CT examination. No ab normal calcifications. IMPRESSION: 1. Abnormal thickening of the sigmoid colon with possible obstruction at this location. This may repr esent postinfectious/inflammatory stricture, although neoplasm is not excluded. Moderate gas througho ut the small bowel and colon may reflect ileus or distal obstruction. 2: Chronic bilateral lower lobe atelectasis. Reviewed, dictated and finalized at location A. IMPRESSION: 1. Abnormal thickening of the sigmoid colon with possible obstruction at this l ocation. This may represent postinfectious/inflammatory stricture, although joann plasm is not excluded. Moderate gas throughout the small bowel and colon may re flect ileus or distal obstruction. 2: Chronic bilateral lower lobe atelectasis.
--- NOTE | ~2023-08-09 | XR_ITS ---
EXAMINATION: XR abdomen/kub 1V DATE: 08/11/2023 14:29 INDICATION: Bowel obstruction TECHNIQUE: A supine view of the abdomen on 2 radiographs was obtained. COMPARISON: 08/10/2023 and 08/09/2023 FINDINGS: Gaseous distention of the stomach and gas filling several loops of bowel in the abdomen which appears primarily colonic. There is some stool in the distal colon in the pelvis. No dilated gas-filled loop s of small bowel to suggest small bowel obstruction. IMPRESSION: 1. Nonspecific bowel gas pattern without evident dilated small bowel to suggest small bowel obstructi on. Reviewed, dictated and finalized at location A. IMPRESSION: 1. Nonspecific bowel gas pattern without evident dilated small bowel to suggest small bowel obstruction.
--- NOTE | 2023-08-09 20:20 | PC.NURSE ---
Patient off unit to radiology.
[2023-08-09 21:09] LABS: Basophils Percent Auto 0.3 % (0.2-1.2); Eosinophils Absolute Auto 0.3 K/mm3 (0-0.3); Eosinophils Percent Auto 2.8 % (0-4.4); Hematocrit 44.8 % (42.0-52.0); Hemoglobin 13.8 g/dL (14.0-18.0); Immature Granulocyte Absolute 0.03 K/mm3 (0.00-0.031); Immature Granulocyte Percent A 0.3 % (0-0.5); Lymphocytes Absolute Auto 2.16 K/mm3 (0.9-3.2); Lymphocytes Percent Auto 19.2 % (18.3-44.2); Mean Corpuscular HGB Conc 30.8 g/dl (32-36); Mean Corpuscular Hemoglobin 26.7 pg (26-34); Mean Corpuscular Volume 86.8 fl (80-100); Mean Platelet Volume 11.3 fl (7.4-10.4); Monocytes Absolute Auto 1.2 K/mm3 (0.1-0.6); Monocytes Percent Auto 10.8 % (2.6-8.5); Neutrophils Absolute Auto 7.5 K/mm3 (1.3-6.7); Neutrophils Percent Auto 66.6 % (45.5-73.1); Platelet Count Result 214 k/mm3 (150-375); Red Blood Count 5.16 M/mm3 (4.6-6.20); White Blood Count 11.3 K/mm3 (4.5-10.0)
[2023-08-09 21:20] LABS: Alanine Aminotransferase 15 U/L (6-50); Albumin Level 4.5 g/dL (3.5-5.1); Alkaline Phosphatase 127 U/L (38-126); Anion Gap 9 mmol/L (8-16); Aspartate Amino Transferase 28 U/L (17-59); Bilirubin,Total 0.5 mg/dL (0.2-1.3); Blood Urea Nitrogen 16 mg/dL (9-20); Calcium 9.4 mg/dL (8.4-10.2); Carbon Dioxide 24 mmol/L (22-30); Chloride 103 mmol/L (98-107); Estimated CRCL calculation 79 ml/min; Estimated Glomerular Filt Rate > 60; Glucose 107 mg/dL (65-110); Lipase 31 U/L (23-300); Potassium 4.5 mmol/L (3.4-5.0); Sodium 136 mmol/L (137-145)
--- NOTE | 2023-08-09 22:02 | ED.GENADULT ---
HPI - General Adult General Chief complaint: Unspecified Stated complaint: abd pain-constipated Time Seen by Provider: 08/09/23 19:30 Source: patient Mode of arrival: EMS History of Present Illness HPI narrative: 82-year-old male who history of paraplegia presents via EMS today with complaints of abdominal distention. [facility] patient has had constipation and abdominal distention for a couple days. Today worse with and without relief after laxative was sent to the ER. Just prior to EMS picking up patient did have a large bowel movement and noted feeling better. Abdomen still distended and presented here to the ED. Related Data Home Medications Medication Instructions Recorded Confirmed bisacodyl 5 mg tablet,delayed 5 mg PO DAILY PRN Constipation 09/28/22 08/10/23 release cyanocobalamin (vitamin B-12) 1,000 mcg PO DAILY 09/28/22 08/10/23 1,000 mcg tablet duloxetine 60 mg capsule,delayed 40 mg PO DAILY 09/28/22 08/10/23 release magnesium 250 mg tablet 400 mg PO DAILY 09/28/22 08/10/23 melatonin 3 mg tablet 5 mg PO HS PRN Insomnia 09/28/22 08/10/23 multivitamin with minerals-folic 1 tablet PO DAILY 09/28/22 08/10/23 acid 0.4 mg tablet polyethylene glycol 3350 17 17 g PO DAILY 09/28/22 08/10/23 gram/dose oral powder (Miralax) potassium chloride 10 mEq 10 meq PO DAILY 09/28/22 08/10/23 capsule,extended release acetaminophen 325 mg tablet 650 mg PO Q6H PRN Pain (Scale 10/17/22 08/10/23 (Tylenol) Score 1-3) omeprazole 20 mg capsule,delayed 20 mg PO DAILY 08/10/23 08/10/23 release Allergies Allergy/AdvReac Type Severity Reaction Status Date / Time Penicillins Allergy Unknown Verified 08/09/23 17:22 Review of Systems Review of Systems: All systems reviewed & are unremarkable except as noted in HPI and below PMFSH Past Medical History Medical History (Updated 08/10/23 @ 03:43 by Taniya Bruno APRN) Acute blood loss anemia Anemia Bacteremia due to Staphylococcus Chronic pain Duodenal ulcer Hematemesis Quadriplegia Urinary tract infection Surgical History Surgical History H/O cataract extraction H/O Spinal surgery Family History Family History Father Hypertension Mother Hypertension Social History Social History Social History: [facility] and [place]. The patient is . 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 His is the durable power bank sales and service manager. As well as his son Kyree. Code status full code Smoking status: Former smoker Tobacco type: cigarettes Second hand tobacco smoke exposure: Yes Alcohol intake: former Drinks per week: 0 Substance use: never Lack of Transportation: No Lack of Food: Never True Current Housing: I Have Housing Concerned About Future Housing: No Difficulty Paying Gas/Electric Bills: No Difficulty Paying for Meds: No Currently Unemployed: No Education: Grade School Difficulty w/ Childcare or Family Care: No Spiritual care concerns: No Exam Const: General: cooperative, healthy appearing, comfortable, no acute distress and well developed Orientation/consciousness: patient oriented x3 HENMT: Head: normal to inspection Eyes: General: appearance normal, both eyes and all related structures Resp: Effort & Inspection: normal respiratory effort and able to speak in complete sentences Auscultation: clear to auscultation bilaterally Cardio: Rate: regular rate Rhythm: regular rhythm Heart sounds: S1 normal heart sound present and S2 normal heart sound present GI: Inspection: distended GI Palp: Yes Firmness to palpation present (GI), No Guarding due to palpation present (GI) and Yes No hepatosplenomegaly present Neuro: General: patient oriented x3 Course Consultations
[2023-08-09 22:10] LABS: Prothrombin Time 13.6 Seconds (11.1-14.7)
[2023-08-09 22:11] LABS: Partial Thromboplastin Time 32.7 SECONDS (22.3-36.8)
[2023-08-09] MEDS: DEXTROSE 5%/LACTATED RINGERS 1,000 ML 125 ML IV CONT (23:25)
--- NOTE | 2023-08-09 23:26 | PC.NURSE ---
Patient report given to ANTONINO Miller. All questions answered and care of patient transferred.
[2023-08-10] VITALS (24 sets, daily range): BP systolic 102–163; BP diastolic 61–95; PULSE 69–84; RESP 14–20; TEMP 36.2–36.8; O2SAT 94–99; BMI 25.5
[2023-08-10] MEDS: MORPHINE SULFATE (*CRX) 4 MG/ML INJ IV PUSH (00:12)
--- NOTE | 2023-08-10 02:46 | ADMGEN ---
This patient, Alyson Mares, was admitted to Medical Room 244-. Patient/family oriented to hospital policies and general routines including ID bracelet, bed and alarms, visiting hours, pain management, procedures, bathroom and other care routines, personal items, smoking policy, room service/diet, and visiting hours. Information on how to activate the Rapid Response Team has been discussed. Patient/Family are encouraged to report perceived risks to care and to ask questions if they do not understand what they are told or what they should do.
[2023-08-10 05:26] LABS: Basophils Percent Auto 0.4 % (0.2-1.2); Eosinophils Absolute Auto 0.3 K/mm3 (0-0.3); Eosinophils Percent Auto 2.8 % (0-4.4); Hematocrit 42.5 % (42.0-52.0); Hemoglobin 13.4 g/dL (14.0-18.0); Immature Granulocyte Absolute 0.03 K/mm3 (0.00-0.031); Immature Granulocyte Percent A 0.3 % (0-0.5); Lymphocytes Absolute Auto 2.19 K/mm3 (0.9-3.2); Lymphocytes Percent Auto 21.9 % (18.3-44.2); Mean Corpuscular HGB Conc 31.5 g/dl (32-36); Mean Corpuscular Hemoglobin 26.8 pg (26-34); Mean Platelet Volume 11.3 fl (7.4-10.4); Monocytes Absolute Auto 1.1 K/mm3 (0.1-0.6); Monocytes Percent Auto 10.5 % (2.6-8.5); Neutrophils Absolute Auto 6.4 K/mm3 (1.3-6.7); Neutrophils Percent Auto 64.1 % (45.5-73.1); Platelet Count Result 202 k/mm3 (150-375); Red Cell Distribution Width 15.9 % (11.5-14.5)
[2023-08-10 05:40] LABS: Alanine Aminotransferase 15 U/L (6-50); Albumin Level 4.2 g/dL (3.5-5.1); Alkaline Phosphatase 101 U/L (38-126); Anion Gap 6 mmol/L (8-16); Aspartate Amino Transferase 27 U/L (17-59); Bilirubin,Total 0.6 mg/dL (0.2-1.3); Blood Urea Nitrogen 16 mg/dL (9-20); Calcium 9.2 mg/dL (8.4-10.2); Carbon Dioxide 27 mmol/L (22-30); Chloride 103 mmol/L (98-107); Estimated CRCL calculation 79 ml/min; Estimated Glomerular Filt Rate > 60; Glucose 125 mg/dL (65-110); Potassium 4.3 mmol/L (3.4-5.0); Sodium 136 mmol/L (137-145)
[2023-08-10] MEDS: DEXTROSE 5%/LACTATED RINGERS 1,000 ML 125 ML IV CONT ×2 (08:15→17:53)
[2023-08-10] MEDS: PANTOPRAZOLE SODIUM IV 40 MG VIAL IV PUSH (08:17)
--- NOTE | 2023-08-10 12:18 | PM.IMHP ---
H&P: HPI History of Present Illness Date/Time: 08/10/23 12:18 Chief Complaint: Abdominal distension and pain. Narrative: This is a 82-year-old male with a past medical history of quadriplegia, chronic pain and peptic ulcer disease that presented to the ED on 08/09/2023 due to lower abdominal pain, nausea and vomiting. Patient had 2 episodes of emesis prior to ED arrival but denies any blood present. Patient said all of his symptoms started the day that he presented to the ED. he had not had a bowel movement 6 days prior but once he called EMS he did have a bowel movement and then another bowel movement when he arrived to the ED. Patient stated that his pain had much improved after his bowel movement. Patient denies any abdominal surgeries. CT abdomen pelvis showing abnormal thickening of the sigmoid colon with possible obstruction at this location. Moderate gas throughout the small bowel and colon reflecting ileus or distal obstruction. General surgery was consulted. [facility] Past Medical History Medical History Acute blood loss anemia Anemia Bacteremia due to Staphylococcus Chronic pain Duodenal ulcer Hematemesis Quadriplegia Urinary tract infection Surgical History Surgical History H/O cataract extraction H/O Spinal surgery Family History Family History Father Hypertension Mother Hypertension Social History Social History Social History: [facility] and [place]. The patient is . 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 His is the durable power senior trial attorney. As well as his son Kyree. Code status full code Smoking status: Former smoker Tobacco type: cigarettes Second hand tobacco smoke exposure: Yes Alcohol intake: former Drinks per week: 0 Substance use: never Lack of Transportation: No Lack of Food: Never True Current Housing: I Have Housing Concerned About Future Housing: No Difficulty Paying Gas/Electric Bills: No Difficulty Paying for Meds: No Currently Unemployed: No Education: Grade School Difficulty w/ Childcare or Family Care: No Spiritual care concerns: No Meds Home Medications and Allergies Home Medications Medication Instructions Recorded Confirmed Type bisacodyl 5 mg tablet,delayed 5 mg PO DAILY PRN Constipation 09/28/22 08/10/23 History release cyanocobalamin (vitamin B-12) 1,000 mcg PO DAILY 09/28/22 08/10/23 History 1,000 mcg tablet duloxetine 60 mg capsule,delayed 40 mg PO DAILY 09/28/22 08/10/23 History release magnesium 250 mg tablet 400 mg PO DAILY 09/28/22 08/10/23 History melatonin 3 mg tablet 5 mg PO HS PRN Insomnia 09/28/22 08/10/23 History multivitamin with minerals-folic 1 tablet PO DAILY 09/28/22 08/10/23 History acid 0.4 mg tablet polyethylene glycol 3350 17 17 g PO DAILY 09/28/22 08/10/23 History gram/dose oral powder (Miralax) potassium chloride 10 mEq 10 meq PO DAILY 09/28/22 08/10/23 History capsule,extended release oxycodone-acetaminophen 7.5 mg-325 1 tablet PO Q6H PRN Pain #12 tabs 10/03/22 08/10/23 Rx mg tablet (Percocet) acetaminophen 325 mg tablet 650 mg PO Q6H PRN Pain (Scale 10/17/22 08/10/23 History (Tylenol) Score 1-3) albuterol sulfate 90 mcg/actuation 2 puff inhalation Q6HRT PRN 10/24/22 08/10/23 Rx aerosol inhaler (Proventil HFA) Shortness Of Breath #1 inh omeprazole 20 mg capsule,delayed 20 mg PO DAILY 08/10/23 08/10/23 History release Allergies Allergy/AdvReac Type Severity Reaction Status Date / Time Penicillins Allergy Unknown Verified 08/09/23 17:22 Vital Signs Vital Signs - 24 hr 08/09/23 17:11 08/09/23 17:19 08/09/23 17:42 Temperature 98.5 F Pulse Rate 91 Respira
--- NOTE | 2023-08-10 12:26 | PM.CNGS ---
Assessment and Plan Assessment and plan (1) Bowel obstruction: Code(s): K56.609 - Unspecified intestinal obstruction, unspecified as to partial versus complete obstruction Status: Acute Assessment and Plan: CT reviewed, exam completely benign, we will get Hypaque enema for further evaluation, will also need GI consultation for possible colonoscopy, okay to start clear liquids for now (2) Paraplegia: Code(s): G82.20 - Paraplegia, unspecified Status: Acute Assessment and Plan: continue medical management, turning and pressure offloading precautions History of Present Illness Consult details Consult date: 08/10/23 Reason for consult: abdominal pain Requesting physician: Francie Thompson MD Narrative: The patient is an 82-year-old male with multiple medical issues including paraplegia, presenting to the emergency department with abdominal distention, nausea and vomiting. Per the patient and his family, this is been going on intermittently over the last month or so. The patient denies any severe abdominal pain, just distention and discomfort. The patient also reports he has had a largely normal appetite. The patient currently resides at a care home and was brought to the emergency department yesterday given the nausea and vomiting. Of note, just prior to coming to the emergency department the patient reports he had a large bowel movement. Review of Systems Review of Systems: All systems reviewed & are unremarkable except as noted in HPI and below PMFSH Past Medical History Medical History Acute blood loss anemia Anemia Bacteremia due to Staphylococcus Chronic pain Duodenal ulcer Hematemesis Quadriplegia Urinary tract infection Surgical History Surgical History H/O cataract extraction H/O Spinal surgery Family History Family History Father Hypertension Mother Hypertension Social History Social History Social History: [facility] [place]. The patient is . 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 His is the durable power evaporator operator molasses. As well as his son Kyree. Code status full code Smoking status: Former smoker Tobacco type: cigarettes Second hand tobacco smoke exposure: Yes Alcohol intake: former Drinks per week: 0 Substance use: never Lack of Transportation: No Lack of Food: Never True Current Housing: I Have Housing Concerned About Future Housing: No Difficulty Paying Gas/Electric Bills: No Difficulty Paying for Meds: No Currently Unemployed: No Education: Grade School Difficulty w/ Childcare or Family Care: No Spiritual care concerns: No Meds Home Medications and Allergies Home Medications Medication Instructions Recorded Confirmed Type bisacodyl 5 mg tablet,delayed 5 mg PO DAILY PRN Constipation 09/28/22 08/10/23 History release cyanocobalamin (vitamin B-12) 1,000 mcg PO DAILY 09/28/22 08/10/23 History 1,000 mcg tablet duloxetine 60 mg capsule,delayed 40 mg PO DAILY 09/28/22 08/10/23 History release magnesium 250 mg tablet 400 mg PO DAILY 09/28/22 08/10/23 History melatonin 3 mg tablet 5 mg PO HS PRN Insomnia 09/28/22 08/10/23 History multivitamin with minerals-folic 1 tablet PO DAILY 09/28/22 08/10/23 History acid 0.4 mg tablet polyethylene glycol 3350 17 17 g PO DAILY 09/28/22 08/10/23 History gram/dose oral powder (Miralax) potassium chloride 10 mEq 10 meq PO DAILY 09/28/22 08/10/23 History capsule,extended release oxycodone-acetaminophen 7.5 mg-325 1 tablet PO Q6H PRN Pain #12 tabs 10/03/22 08/10/23 Rx mg tablet (Percocet) acetaminophen 325 mg tablet 650 mg PO Q6H PRN Pain (Scale 10/17/22 08/10/23 History (
[2023-08-10] MEDS: ENOXAPARIN 40 MG/0.4 ML SYRINGE SUB-Q (13:44)
--- NOTE | 2023-08-10 15:48 | WPDGICN ---
Assessment and Plan Assessment and plan (1) Bowel obstruction: Code(s): K56.609 - Unspecified intestinal obstruction, unspecified as to partial versus complete obstruction Status: Acute Assessment and Plan: enema reviewed and showed distention of the distal colon, consistent with adynamic ileus. No stricture. he is doing better right now surgery on board, abdominal exam benign ok to start liquid diet probably he will benefit at some point from colonoscopy since never had one no gi coverage this weekend (2) Nausea and vomiting in adult: Code(s): R11.2 - Nausea with vomiting, unspecified Status: Acute Assessment and Plan: here with adynamic ileus supportive care liquid diet as tolerated (3) Paraplegia: Code(s): G82.20 - Paraplegia, unspecified Status: Acute (4) Abdominal distension: Code(s): R14.0 - Abdominal distension (gaseous) Status: Acute (5) Constipation: Code(s): K59.00 - Constipation, unspecified Status: Acute GI Consult Note Consult date/time: 08/10/23 15:48 Reason for consult: ileus. n/v HPI: Alyson Mares is a 82 year old male with paraplegia after had cervical surgery few years ago, constipation, UGI due to duodenal ulcer found by EGD in 2020 and now he is a [facility] resident. He came to the emergency department with new onset of nausea, vomiting and abdominal distention. He denies any severe abdominal pain, just distention and discomfort, he normally has constipation but had BM before coming to hospital. Patient denies any abdominal surgeries and never had colonoscopy.? CT abdomen pelvis reviewed, abnormal thickening of the sigmoid colon with possible obstruction at this location.? Moderate gas throughout the small bowel and colon reflecting ileus or distal obstruction, he just completed enema with water. He denies any more nausea or abdominal distension, back to his baseline. Review of Systems Constitutional: Comments: paraplegic Eyes: Eyes: Denies blurry vision ENT: Reports Normal hearing present Cardiovascular: Cardiovascular: Denies chest pain Respiratory: Respiratory: Denies cough Gastrointestinal: Gastrointestinal: Reports constipation, Reports nausea and Reports vomiting Genitourinary: Genitourinary: Reports urinary incontinence Musculoskeletal: Comments: contractures Integumentary/Breasts: Skin/Breast: Denies rash Neurologic: Comments: paraplejic Psychiatric: Psychiatric: Denies behavioral changes PMFSH Past Medical History Medical History (Updated 08/10/23 @ 15:55 by Lobo Monzon MD) Abdominal distension Acute blood loss anemia Anemia Bacteremia due to Staphylococcus Chronic pain Constipation Duodenal ulcer Hematemesis Nausea and vomiting in adult Quadriplegia Urinary tract infection Surgical History Surgical History H/O cataract extraction H/O Spinal surgery Family History Family History Father Hypertension Mother Hypertension Social History Social History Social History: [facility] and [place]. The patient is . 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 His is the durable power workers compensation attorney. As well as his son Kyree. Code status full code Smoking status: Former smoker Tobacco type: cigarettes Second hand tobacco smoke exposure: Yes Alcohol intake: former Drinks per week: 0 Substance use: never Lack of Transportation: No Lack of Food: Never True Current Housing: I Have Housing Concerned About Future Housing: No Difficulty Paying Gas/Electric Bills: No Difficulty Paying for Meds: No Currently Unemployed: No Education: Grade School Difficulty w/ Childcare or Family Care: No Spiritual ca
[2023-08-11] MEDS: DEXTROSE 5%/LACTATED RINGERS 1,000 ML 125 ML IV CONT ×2 (02:00→10:09)
[2023-08-11 04:41] VITALS: BP 110/60; PULSE 83; RESP 16; TEMP 36.6; O2SAT 99
[2023-08-11 05:47] LABS: Hematocrit 40.9 % (42.0-52.0); Hemoglobin 12.9 g/dL (14.0-18.0); Mean Corpuscular HGB Conc 31.5 g/dl (32-36); Mean Corpuscular Hemoglobin 26.9 pg (26-34); Mean Corpuscular Volume 85.4 fl (80-100); Mean Platelet Volume 11.1 fl (7.4-10.4); Platelet Count Result 171 k/mm3 (150-375); Red Blood Count 4.79 M/mm3 (4.6-6.20); Red Cell Distribution Width 15.9 % (11.5-14.5)
[2023-08-11 06:04] LABS: Alanine Aminotransferase 15 U/L (6-50); Albumin Level 3.9 g/dL (3.5-5.1); Alkaline Phosphatase 86 U/L (38-126); Anion Gap 8 mmol/L (8-16); Aspartate Amino Transferase 33 U/L (17-59); Bilirubin,Total 0.8 mg/dL (0.2-1.3); Blood Urea Nitrogen 11 mg/dL (9-20); Carbon Dioxide 23 mmol/L (22-30); Chloride 106 mmol/L (98-107); Estimated CRCL calculation 79 ml/min; Estimated Glomerular Filt Rate > 60; Glucose 117 mg/dL (65-110); Sodium 137 mmol/L (137-145)
[2023-08-11] MEDS: PANTOPRAZOLE SODIUM IV 40 MG VIAL IV PUSH (08:01)
[2023-08-11] MEDS: ENOXAPARIN 40 MG/0.4 ML SYRINGE SUB-Q (08:01)
--- NOTE | 2023-08-11 12:41 | PM.PNGS ---
Progress Note: A&P Assessment and Plan (1) Bowel obstruction: Code(s): K56.609 - Unspecified intestinal obstruction, unspecified as to partial versus complete obstruction Status: Acute Assessment and Plan: hypaque enema reviewed, no obstruction, appreciate GI input and will likely need colonoscopy as outpt, exam benign, no acute surgical issues, will s/o, call c ?s, issues Subjective Subjective Date/Time Seen: 08/11/23 12:41 Interval history: reports some pain/discomfort c bowel movts, no abd pain otherwise, no further N/V, wanda diet Review of Systems Review of Systems: All systems reviewed & are unremarkable except as noted in HPI and below Exam Const: General: cooperative, no acute distress and ill appearing Resp: Auscultation: diminished lung sounds Cardio: Rate: regular rate Rhythm: regular rhythm GI: Inspection: normal to inspection and distended GI Palp: No abdominal tenderness, Yes Soft to palpation, No Tenderness to palpation present (GI), No Guarding due to palpation present (GI) and No Rigid due to palpation Objective Data Vital Signs Vital Signs: Vital Signs - 24 hr 08/10/23 14:00 08/10/23 21:59 08/11/23 04:41 Temperature 36.6 C 36.3 C L 36.6 C Pulse Rate 69 72 83 Respiratory Rate 14 16 16 Blood Pressure 120/71 111/61 110/60 Pulse Oximetry 98 96 99 Oxygen Delivery 08/11/23 07:53 Temperature Pulse Rate Respiratory Rate Blood Pressure Pulse Oximetry Oxygen Delivery Room Air Intake/Output Intake/Output: Intake & Output 08/08/23 08/09/23 08/10/23 08/11/23 23:59 23:59 23:59 23:59 Intake Total 2360 2370 Balance 2360 2370 Meds/Results Medications: Active Medications Generic Name Dose Route Start Last Admin Trade Name Freq PRN Reason Stop Dose Admin Enoxaparin Sodium 40 mg 08/10/23 09:00 08/11/23 08:01 Enoxaparin 40 Mg/0.4 Ml Syringe SUB-Q 40 mg DAILY MOON Administration Dextrose/Lactated Ringer's 1,000 mls @ 125 mls/hr 08/09/23 22:20 08/11/23 10:09 Dextrose 5%/Lactated Ringers IV CONT 125 mls/hr .Q8H MOON Administration Morphine Sulfate 4 mg 10/12/23 22:18 08/10/23 00:12 Morphine Sulfate (*Crx) 4 Mg/Ml Inj IV PUSH 4 mg Q2H PRN Administration Pain Rated 7-10 Ondansetron HCl 4 mg 08/09/23 22:18 Ondansetron Inj 4 Mg/2 Ml Vial IV PUSH Q4H PRN Nausea Pantoprazole Sodium 40 mg 08/10/23 09:00 08/11/23 08:01 Pantoprazole Sodium Iv 40 Mg Vial IV PUSH 40 mg QAM MOON Administration Radiology Results: ITS Impressions Abdomen X-Ray 08/09/23 20:28 IMPRESSION: 1. Abnormal thickening of the sigmoid colon with possible obstruction at this location. This may represent postinfectious/inflammatory stricture, although neoplasm is not excluded. Moderate gas throughout the small bowel and colon may reflect ileus or distal obstruction. 2: Chronic bilateral lower lobe atelectasis. Abdomen/Pelvis CT 08/09/23 20:28 IMPRESSION: 1. Abnormal thickening of the sigmoid colon with possible obstruction at this location. This may represent postinfectious/inflammatory stricture, although neoplasm is not excluded. Moderate gas throughout the small bowel and colon may reflect ileus or distal obstruction. 2: Chronic bilateral lower lobe atelectasis. Enema w/Water Soluble 08/10/23 14:50 IMPRESSION: 1. Distention of the distal colon, consistent with adynamic ileus. No stricture. Labs Labs: Laboratory Results - last 24 hr 08/11/23 05:35 WBC 8.0 RBC 4.79 Hgb 12.9 L Hct 40.9 L MCV 85.4 MCH 26.9 MCHC 31.5 L RDW 15.9 H Plt Count 171 MPV 11.1 H Sodium 137 Potassium 4.0 Chloride 106 Carbon Dioxide 23 Anion Gap 8 BUN 11 D Creatinine 0.60 L Estim Creat Clear Calc 79 Estimated GFR > 60 Glucose 117 H Calcium 9.0 Total Bilirubin 0.8 AST 33 ALT 15 Alkaline Phosphatase 86 Total Protein 8.0 Albumin 3.9
[2023-08-11 14:00] VITALS: BP 109/57; PULSE 96; RESP 18; TEMP 36.4; O2SAT 96
--- NOTE | 2023-08-11 14:53 | PM.DS ---
DS: Admitting Diagnosis Discharge Date 08/11/23 Admitting Diagnosis constipation DS: Discharge Diagnosis Discharge Diagnosis (1) Bowel obstruction: Code(s): K56.609 - Unspecified intestinal obstruction, unspecified as to partial versus complete obstruction Status: Acute (2) Chronic pain: Code(s): G89.29 - Other chronic pain Status: Chronic (3) Duodenal ulcer: Code(s): K26.9 - Duodenal ulcer, unspecified as acute or chronic, without hemorrhage or perforation Status: Chronic DS: Summary Hospital Course Hospital Course: This is a 82-year-old male with a past medical history of quadriplegia, chronic pain and peptic ulcer disease that presented to the ED on 08/09/2023 due to lower abdominal pain, nausea and vomiting.? Patient had 2 episodes of emesis prior to ED arrival but denies any blood present.? Patient said all of his symptoms started the day that he presented to the ED. he had not had a bowel movement 6 days prior but once he called EMS he did have a bowel movement and then another bowel movement when he arrived to the ED.? Patient stated that his pain had much improved after his bowel movement.? Patient denies any abdominal surgeries.? CT abdomen pelvis showing abnormal thickening of the sigmoid colon with possible obstruction at this location.? Moderate gas throughout the small bowel and colon reflecting ileus or distal obstruction.? General surgery was consulted. General Surgery ordered barium enema. Patient had >10 bowel movements while in the hospital. Repeat scan did not show any evidence of obstruction. Abdominal pain resolved. Labs and vital signs are stable and he is medically cleared for discharge. Time Spent with Patient Time attestation: Total time spent providing and/or coordinating discharge services: Exam Narrative: GENERAL: Comfortable, no acute distress HENMT: moist mucous membranes EYES: EOM intact b/l NECK: no lymphadenopathy RESPIRATORY: clear to auscultation CARDIO: RRR GI: soft, nontender, bowel sounds present SKIN: no rashes EXTREMITIES: no edema, redness or tenderness; Contracted arms and legs DS: Data Data Completed and Pending Labs on day of discharge: Labs from last 24 hours 08/11/23 05:35 WBC 8.0 RBC 4.79 Hgb 12.9 L Hct 40.9 L MCV 85.4 MCH 26.9 MCHC 31.5 L RDW 15.9 H Plt Count 171 MPV 11.1 H Sodium 137 Potassium 4.0 Chloride 106 Carbon Dioxide 23 Anion Gap 8 BUN 11 D Creatinine 0.60 L Estim Creat Clear Calc 79 Estimated GFR > 60 Glucose 117 H Calcium 9.0 Total Bilirubin 0.8 AST 33 ALT 15 Alkaline Phosphatase 86 Total Protein 8.0 Albumin 3.9 Discharge Plan Discharge Attending physician on discharge: Kishan Pablo Consulting providers: Surekha Rosado Discharging Clinician: Abby Aguilera Patient Disposition: [place] Senior Living[facility] Living Activity: unlimited Diet: regular Discharge Instructions: Recommendation for constipation: Recommend patient continue MiraLax 17 g up to 3 times a day. Dulcolax suppository 10 mg as needed Colace tablet as needed Once constipation has resolved, slowly decrease the amount of MiraLax you were taking per day. It is not advised that MiraLax be discontinued all at 1 time because there is a risk risk of the constipation returning. For example if you were taking MiraLax once a day, take a break for MiraLax 1 day out of the week. Then the next week take 2 days off of MiraLax and so on. Prevention Increase fiber. Recommended daily fiber is 20-35 g of fiber a day. Bulk forming laxative such as Metamucil Discontinuation of opioids and other medications causing constipation if possible Discharge disposition: Take medications as prescribed Monitor blood pressures Avoid social areas, you wear a mask when in social settings Encouraged to continue with yearly vaccinations Return to the emergency department if he developed sudden henrique
[2023-08-11 16:29] LABS: SARS-CoV-2 RNA PCR Negative (Negative)
== END 2023-08-11 18:42 | DRG 389 ==
LOC: ANHED 23:46 → ANH2MED 08-10 03:43 → ANH3MEDSUR 08-13 13:58
PROVIDERS: Admitting Provider Internal Medicine; Emergency Provider Nurse Practitioner Family; PCP Internal Medicine; Visit Provider Internal Medicine Critical Care Medicine
DX: K56.609 Unspecified intestinal obstruction, unspecified as to partial versus complete obstruction (principal); G82.20 Paraplegia, unspecified; K26.9 Duodenal ulcer, unspecified as acute or chronic, without hemorrhage or perforation; G89.29 Other chronic pain; Z20.822 Contact with and (suspected) exposure to COVID-19
CPT/HCPCS: 36415; 74018; 74176; 74270; 80053; 83690; 85025; 85027; 85610; 85730; 87635; 99285; C9113; J1650; J2270; J7121

== ENCOUNTER 2024-03-06 13:10 | Emergency (ER) | payer MEDICARE, SELFPAY ==
--- NOTE | ~2024-03-06 | XR_ITS ---
EXAMINATION: XR abdomen/kub 1V DATE: 03/06/2024 14:21 INDICATION: Bloating TECHNIQUE: A supine view of the abdomen on 2 radiographs was obtained. COMPARISON: 08/11/2023 FINDINGS: Again seen is gaseous distention of the stomach and gas and stool scattered throughout the colon. No dilated loops of gas-filled small bowel to suggest obstruction. Streaky opacities in the right lung base and favor atelectasis over pneumonia. Heart size is normal. IMPRESSION: 1. Nonspecific bowel gas pattern without evident dilated small bowel to suggest obstruction. 2. Opacities at the right lung base which could represent atelectasis or pneumonia. Reviewed, dictated and finalized at location A. IMPRESSION: 1. Nonspecific bowel gas pattern without evident dilated small bowel to suggest obstruction. 2. Opacities at the right lung base which could represent atelectasis or pneumo madan.
[2024-03-06 13:10] VITALS: BP 146/104; PULSE 105; RESP 22; TEMP 37.1; O2SAT 98
[2024-03-06 13:32] VITALS: BP 159/92; PULSE 102; RESP 24; O2SAT 99
--- NOTE | 2024-03-06 13:49 | ECG_ITS ---
SEE SCANNED COPY FOR CONFIRMED REPORT MTDD
--- NOTE | 2024-03-06 13:51 | ED.GENADULT ---
HPI - General Adult General Chief complaint: Unspecified Stated complaint: doesn't feel well Time Seen by Provider: 03/06/24 13:36 History of Present Illness HPI narrative: Pt presents with abdominal bloating and possible constipation. Son states they have had this issue before and sometime he gets so bloated he has trouble breathing. Pt denies respirtaory problems now. Pt says he has trouble moving bowels due to his paralysis and bed bound status. Related Data Home Medications Medication Instructions Recorded Confirmed bisacodyl 5 mg tablet,delayed 5 mg PO DAILY PRN Constipation 09/28/22 08/10/23 release cyanocobalamin (vitamin B-12) 1,000 mcg PO DAILY 09/28/22 08/10/23 1,000 mcg tablet duloxetine 60 mg capsule,delayed 40 mg PO DAILY 09/28/22 08/10/23 release magnesium 250 mg tablet 400 mg PO DAILY 09/28/22 08/10/23 melatonin 3 mg tablet 5 mg PO HS PRN Insomnia 09/28/22 08/10/23 multivitamin with minerals-folic 1 tablet PO DAILY 09/28/22 08/10/23 acid 0.4 mg tablet polyethylene glycol 3350 17 17 g PO DAILY 09/28/22 08/10/23 gram/dose oral powder (Miralax) potassium chloride 10 mEq 10 meq PO DAILY 09/28/22 08/10/23 capsule,extended release acetaminophen 325 mg tablet 650 mg PO Q6H PRN Pain (Scale 10/17/22 08/10/23 (Tylenol) Score 1-3) omeprazole 20 mg capsule,delayed 20 mg PO DAILY 08/10/23 08/10/23 release Allergies Allergy/AdvReac Type Severity Reaction Status Date / Time Penicillins Allergy Unknown Verified 03/06/24 13:28 Review of Systems Review of Systems: All systems reviewed & are unremarkable except as noted in HPI and below PMFSH Past Medical History Medical History (Updated 03/06/24 @ 16:12 by Ehsan Trimble III, DO) Abdominal distension Acute blood loss anemia Anemia Bacteremia due to Staphylococcus Chronic pain Constipation Duodenal ulcer Hematemesis Nausea and vomiting in adult Quadriplegia Urinary tract infection Surgical History Surgical History H/O cataract extraction H/O Spinal surgery Family History Family History Father Hypertension Mother Hypertension Social History Social History Social History: [facility] and [place]. The patient is . 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 His is the [employer] power [employer] worker. As well as his son Kyree. Code status full code Smoking status: Former smoker Tobacco type: cigarettes Second hand tobacco smoke exposure: Yes Alcohol intake: former Drinks per week: 0 Substance use: never Lack of Transportation: No Lack of Food: Never True Current Housing: I Have Housing Concerned About Future Housing: No Difficulty Paying Gas/Electric Bills: No Difficulty Paying for Meds: No Currently Unemployed: No Education: Grade School Difficulty w/ Childcare or Family Care: No Spiritual care concerns: No Exam Const: General: healthy appearing and comfortable Orientation/consciousness: patient oriented x3 Limitations: no limitations Resp: Effort & Inspection: normal respiratory effort and able to speak in complete sentences Auscultation: clear to auscultation bilaterally Cardio: Rate: regular rate Rhythm: regular rhythm GI: GI Palp: No abdominal tenderness, Yes Firmness to palpation present (GI) and Yes Other GI palpation findings present (distended) Percussion: Yes dullness to percussion Auscultation: Hypoactive bowel sounds present Skin: General skin exam: normal color Rashes: no rashes Neuro: General: patient oriented x3 and no focal motor deficits Cranial nerves: Yes CN's II-XII intact bilaterally Speech: normal speech Motor exam (neuro): 5/5 motor strength present throughout Sensory Exam: normal sensation Extrem: General: normal to inspec
[2024-03-06 14:13] LABS: Basophils Percent Auto 0.3 % (0.2-1.2); Eosinophils Absolute Auto 0.4 K/mm3 (0-0.3); Eosinophils Percent Auto 4.3 % (0-4.4); Hematocrit 43.2 % (42.0-52.0); Hemoglobin 13.7 g/dL (14.0-18.0); Immature Granulocyte Absolute 0.04 K/mm3 (0.00-0.031); Immature Granulocyte Percent A 0.4 % (0-0.5); Lymphocytes Percent Auto 14.5 % (18.3-44.2); Mean Corpuscular HGB Conc 31.7 g/dl (32-36); Mean Corpuscular Hemoglobin 26.6 pg (26-34); Mean Corpuscular Volume 83.7 fl (80-100); Mean Platelet Volume 11.2 fl (7.4-10.4); Monocytes Percent Auto 9.3 % (2.6-8.5); Neutrophils Absolute Auto 7.3 K/mm3 (1.3-6.7); Neutrophils Percent Auto 71.2 % (45.5-73.1); Platelet Count Result 237 k/mm3 (150-375); Red Blood Count 5.16 M/mm3 (4.6-6.20); Red Cell Distribution Width 15.5 % (11.5-14.5); White Blood Count 10.3 K/mm3 (4.5-10.0)
[2024-03-06 14:23] LABS: Alanine Aminotransferase 15 U/L (6-50); Albumin Level 4.6 g/dL (3.5-5.1); Alkaline Phosphatase 132 U/L (38-126); Anion Gap 8 mmol/L (4-12); Aspartate Amino Transferase 22 U/L (17-59); Bilirubin,Total 0.5 mg/dL (0.2-1.3); Blood Urea Nitrogen 15 mg/dL (9-20); Calcium 9.9 mg/dL (8.4-10.2); Carbon Dioxide 26 mmol/L (22-30); Chloride 101 mmol/L (98-107); Estimated CRCL calculation 78 ml/min; Estimated Glomerular Filt Rate > 60; Glucose 148 mg/dL (65-110); Lipase 29 U/L (23-300); Potassium 4.4 mmol/L (3.4-5.0); Sodium 135 mmol/L (137-145)
[2024-03-06 14:24] LABS: Prothrombin Time 13.7 Seconds (11.1-14.7)
[2024-03-06 14:25] LABS: Partial Thromboplastin Time 31.6 Seconds (22.3-36.8)
[2024-03-06 14:35] LABS: Troponin I < 0.012 ng/mL (0.000-0.034)
--- NOTE | 2024-03-06 16:17 | PC.NURSE ---
attempted to call [facility], no answer.
[2024-03-06 16:48] VITALS: BP 133/94; PULSE 104; RESP 20; O2SAT 98
== END 2024-03-06 16:56 ==
PROVIDERS: Emergency Provider Emergency Medicine; PCP Internal Medicine
DX: K59.00 Constipation, unspecified (principal); D64.9 Anemia, unspecified; G82.50 Quadriplegia, unspecified; Z74.01 Bed confinement status; Z98.49 Cataract extraction status, unspecified eye; Z87.440 Personal history of urinary (tract) infections; Z87.891 Personal history of nicotine dependence; I49.3 Ventricular premature depolarization; R94.31 Abnormal electrocardiogram [ECG] [EKG]
CPT/HCPCS: 36415; 74018; 80053; 83690; 84484; 85025; 85610; 85730; 93005; 99284

== ENCOUNTER 2024-03-19 13:17 | Emergency (ER) | payer MEDICARE, SELFPAY ==
[2024-03-19] VITALS (24 sets, daily range): BP systolic 111–134; BP diastolic 75–91; PULSE 76–95; RESP 11–30; TEMP 37.3; O2SAT 95–98
--- NOTE | ~2024-03-19 | XR_ITS ---
Clinical Indication: Shortness of breath PA and lateral views of the chest: Comparison: 10/17/2022 Findings: There is probable discoid right basilar atelectasis or scarring. Left lung clear. Cardiome diastinal silhouette is within normal limits. Cervical spine fixation hardware present. Impression: Discoid right basilar atelectasis or scarring, otherwise clear lungs. Reviewed, dictated and finalized at location . Impression: Discoid right basilar atelectasis or scarring, otherwise clear lungs.
--- NOTE | 2024-03-19 14:03 | ECG_ITS ---
SEE SCANNED COPY FOR CONFIRMED REPORT MTDD
[2024-03-19 14:57] LABS: Basophils Percent Auto 0.4 % (0.2-1.2); Eosinophils Absolute Auto 0.3 K/mm3 (0-0.3); Hematocrit 41.2 % (42.0-52.0); Immature Granulocyte Absolute 0.04 K/mm3 (0.00-0.031); Immature Granulocyte Percent A 0.4 % (0-0.5); Lymphocytes Percent Auto 15.2 % (18.3-44.2); Mean Corpuscular HGB Conc 31.6 g/dl (32-36); Mean Corpuscular Hemoglobin 26.6 pg (26-34); Mean Corpuscular Volume 84.3 fl (80-100); Mean Platelet Volume 11.4 fl (7.4-10.4); Monocytes Absolute Auto 0.9 K/mm3 (0.1-0.6); Monocytes Percent Auto 9.2 % (2.6-8.5); Neutrophils Absolute Auto 7.1 K/mm3 (1.3-6.7); Neutrophils Percent Auto 71.8 % (45.5-73.1); Platelet Count Result 249 k/mm3 (150-375); Red Blood Count 4.89 M/mm3 (4.6-6.20); Red Cell Distribution Width 16.2 % (11.5-14.5); White Blood Count 9.9 K/mm3 (4.5-10.0)
[2024-03-19 15:12] LABS: Alanine Aminotransferase 12 U/L (6-50); Albumin Level 4.4 g/dL (3.5-5.1); Alkaline Phosphatase 117 U/L (38-126); Anion Gap 5 mmol/L (4-12); Aspartate Amino Transferase 29 U/L (17-59); Bilirubin,Total 0.5 mg/dL (0.2-1.3); Blood Urea Nitrogen 15 mg/dL (9-20); Calcium 9.2 mg/dL (8.4-10.2); Carbon Dioxide 28 mmol/L (22-30); Chloride 106 mmol/L (98-107); Estimated CRCL calculation 75 ml/min; Estimated Glomerular Filt Rate > 60; Glucose 140 mg/dL (65-110); Potassium 3.8 mmol/L (3.4-5.0); Sodium 139 mmol/L (137-145)
[2024-03-19 15:23] LABS: Lactic Acid Reflex 1.9 mmol/L (0.7-2.0)
--- NOTE | 2024-03-19 17:15 | ED.GENADULT ---
HPI - General Adult General Chief complaint: Shortness of Breath/Dyspnea Stated complaint: sob Time Seen by Provider: 03/19/24 14:50 History of Present Illness HPI narrative: This is an 83-year-old male with history of spinal cord injury incomplete paralysis presenting with an episode of shortness of breath. The patient was put in his for [employer] to be placed in the shower. While he was being lifted he became short of breath. When they took him out of 4 year and shortness of breath resolved. This is happened the patient many times in the past. He denies fever chills chest pain difficulty breathing abdominal pain or lower extremity edema. Patient does have a distended abdomen although that is well document is chronic. Last bowel movement was yesterday. No nausea Related Data Home Medications Medication Instructions Recorded Confirmed bisacodyl 5 mg tablet,delayed 5 mg PO DAILY PRN Constipation 09/28/22 08/10/23 release cyanocobalamin (vitamin B-12) 1,000 mcg PO DAILY 09/28/22 08/10/23 1,000 mcg tablet duloxetine 60 mg capsule,delayed 40 mg PO DAILY 09/28/22 08/10/23 release magnesium 250 mg tablet 400 mg PO DAILY 09/28/22 08/10/23 melatonin 3 mg tablet 5 mg PO HS PRN Insomnia 09/28/22 08/10/23 multivitamin with minerals-folic 1 tablet PO DAILY 09/28/22 08/10/23 acid 0.4 mg tablet polyethylene glycol 3350 17 17 g PO DAILY 09/28/22 08/10/23 gram/dose oral powder (Miralax) potassium chloride 10 mEq 10 meq PO DAILY 09/28/22 08/10/23 capsule,extended release acetaminophen 325 mg tablet 650 mg PO Q6H PRN Pain (Scale 10/17/22 08/10/23 (Tylenol) Score 1-3) omeprazole 20 mg capsule,delayed 20 mg PO DAILY 08/10/23 08/10/23 release Allergies Allergy/AdvReac Type Severity Reaction Status Date / Time Penicillins Allergy Unknown Verified 03/06/24 13:28 [facility] Past Medical History Medical History (Updated 03/19/24 @ 17:20 by Maynor Gómez MD) Abdominal distension Acute blood loss anemia Anemia Bacteremia due to Staphylococcus Chronic pain Constipation Duodenal ulcer Hematemesis Nausea and vomiting in adult Quadriplegia Urinary tract infection Surgical History Surgical History H/O cataract extraction H/O Spinal surgery Family History Family History Father Hypertension Mother Hypertension Social History Social History Social History: [facility] and [place]. The patient is . 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 His is the durable power attorney general. As well as his son Kyree. Code status full code Smoking status: Former smoker Tobacco type: cigarettes Second hand tobacco smoke exposure: Yes Alcohol intake: former Drinks per week: 0 Substance use: never Lack of Transportation: No Lack of Food: Never True Current Housing: I Have Housing Concerned About Future Housing: No Difficulty Paying Gas/Electric Bills: No Difficulty Paying for Meds: No Currently Unemployed: No Education: Grade School Difficulty w/ Childcare or Family Care: No Spiritual care concerns: No Exam Narrative: APPEARANCE: No apparent distress. A&O x4 Head: atraumatic. EYES: EOMI, NOSE: Atraumatic NECK: Trachea midline RESPIRATORY: No increased rate of breathing CTAB CARDIOVASCULAR: RRR, ABDOMINAL: Abdomen is distended and tympanic but nontender this is chronic MUSCULOSKELETAl: All extremities are contracted NEURO: Alert. Moving 4/4 extremities SKIN:: Warm, dry. Normal color PSYCHIATRIC: Normal affect Course Vital Signs Vital signs: Vital Signs Temperature 99.1 F 03/19/24 13:12 Pulse Rate 84 03/19/24 13:12 Respiratory Rate 20 03/19/24 13:12 Blood Pressure 134/91 H 03/19/24 13:12 Pulse Oximetry 98 03/19/24 13:12 Ox
== END 2024-03-19 18:52 ==
PROVIDERS: Emergency Provider Emergency Medicine; PCP Internal Medicine
DX: R06.00 Dyspnea, unspecified (principal); G82.50 Quadriplegia, unspecified; S14.159S Other incomplete lesion at unspecified level of cervical spinal cord, sequela; X58.XXXS Exposure to other specified factors, sequela; R14.0 Abdominal distension (gaseous); D64.9 Anemia, unspecified; Z87.440 Personal history of urinary (tract) infections; Z87.891 Personal history of nicotine dependence; Z98.49 Cataract extraction status, unspecified eye
CPT/HCPCS: 36415; 71046; 80053; 83605; 85025; 93005; 99284